=== PATIENT | female | born 1940 ===

== ENCOUNTER 2023-09-24 07:28 | Emergency (ER) | payer MEDICARE, OTHER ==
--- NOTE | 2023-09-24 08:04 | ED ---
Altered Mental Status HPI - General Chief Complaint: Altered Mental Status Stated Complaint: AMS Time Seen by Provider: 09/24/23 07:36 Source: patient, EMS, RN notes reviewed, old records reviewed Mode of arrival: EMS Limitations: altered mental status - History of Present Illness Initial Comments: This is a 83-year-old female to ER for altered mental status. Patient is a poor historian secondary to baseline clinical condition MD Complaint: altered mental status, confusion, decreased responsiveness, weakness -: unknown Consistency of Symptoms: waxing and waning, getting worse Context: history of similar presentation Associated Symptoms: denies other symptoms Treatments Prior to Arrival: other pre-hospital medication - Related Data Home Medications Medication Instructions Recorded Confirmed Acetaminophen Tab [Tylenol] 650 mg PO DAILY 09/30/23 09/30/23 Acetaminophen Tab [Tylenol] 650 mg PO Q4H PRN 09/30/23 09/30/23 Aspirin 81 mg PO DAILY 09/30/23 09/30/23 Atorvastatin [Lipitor] 20 mg PO HS 09/30/23 09/30/23 Famotidine 20 mg PO DAILY 09/30/23 09/30/23 Furosemide [Lasix] 20 mg PO DAILY 09/30/23 09/30/23 Health Shake 1 dose PO W/LUNCH 09/30/23 09/30/23 Ipratropium-Albuterol Nebulize 3 ml INHALATION RT-Q6H PRN 09/30/23 09/30/23 [Duoneb 0.5 mg-3 mg/3 ml Soln] Loperamide [Imodium] 2 mg PO QID PRN 09/30/23 09/30/23 Losartan [Cozaar] 50 mg PO DAILY 09/30/23 09/30/23 Magnesium Oxide [Mag-Ox] 400 mg PO BID 09/30/23 09/30/23 Menthol [Biofreeze] 1 applic TOPICAL Q4H PRN 09/30/23 09/30/23 Nitrofurantoin Monohyd/M-Cryst 100 mg PO Q12HR 09/30/23 09/30/23 [Macrobid] metFORMIN HCL [Glucophage] 500 mg PO BID 09/30/23 09/30/23 Allergies Allergy/AdvReac Type Severity Reaction Status Date / Time No Known Allergies Allergy Verified 09/30/23 18:23 Review of Systems ROS Statement: Those systems with pertinent positive or pertinent negative responses have been documented in the HPI. ROS Other: All systems not noted in ROS Statement are negative. General Exam Limitations: altered mental status General appearance: alert, in no apparent distress Head exam: Present: atraumatic, normocephalic, normal inspection Eye exam: Present: normal appearance, PERRL, EOMI. Absent: scleral icterus, conjunctival injection, periorbital swelling ENT exam: Present: normal exam, mucous membranes moist Neck exam: Present: normal inspection. Absent: tenderness, meningismus, lymphadenopathy Respiratory exam: Present: normal lung sounds bilaterally. Absent: respiratory distress, wheezes, rales, rhonchi, stridor Cardiovascular Exam: Present: regular rate, normal rhythm, normal heart sounds. Absent: systolic murmur, diastolic murmur, rubs, gallop, clicks GI/Abdominal exam: Present: soft, normal bowel sounds. Absent: distended, tenderness, guarding, rebound, rigid Extremities exam: Present: normal inspection, full ROM, normal capillary refill. Absent: tenderness, pedal edema, joint swelling, calf tenderness Back exam: Present: normal inspection Neurological exam: Present: alert, oriented X3, CN II-XII intact Psychiatric exam: Present: normal affect, normal mood Skin exam: Present: warm, dry, intact, normal color. Absent: rash Course Vital Signs 09/24/23 09/24/23 09/24/23 07:30 08:44 13:00 Temperature 97.8 F Pulse Rate 104 H 92 87 Respiratory 18 18 18 Rate Blood Pressure 197/106 154/81 169/96 O2 Sat by Pulse 97 98 98 Oximetry - Reevaluation(s) Reevaluation #1: 09/24/23 09:25 Records reviewed Reevaluation #2: 09/24/23 09:25 Patient symptoms unchanged Reevaluation #3: 09/24/23 11:42 patient is informed of results and questions answered Reevaluation #4: Was pt. sent in by a medical professional or institution (, PA, MACHINE [employer]AT [employer]ER, urgent care, hospital, or senior care...) When possible be specific @ -no Did you speak to anyone other than the patient for history (EMS, parent, family, police, friend...)? What history was obtained from this source @ -no Did you review nursing and triage notes (agree or disagree)? Why? @ -agree Are old charts reviewed (outside hosp., previous admission, EMS record, old EKG, old radiological studies, urgent care reports/EKG's, senior care records)? Report findings @ -yes Differential Diagnosis (chest pain, altered mental status, abdominal pain women, abdominal pain men, vaginal bleeding, weakness, fever, dyspnea, syncope, headache, dizziness, GI bleed, back pain, seizure, CVA, palpatations, mental health, musculoskeletal)? @ -prior EKG interpreted by me (3pts min.). @ -yes X-rays interpreted by me (1pt min.). @ -no CT interpreted by me (1pt min.). @ -no U/S interpreted by me (1pt. min.). @ -no What testing was considered but not performed or refused? (CT, X-rays, U/S, labs)? Why? @ -none What meds were considered but not given or refused? Why? @ -none Did you discuss the management of the patient with other professionals (professionals i.e. , PA, MACHINE [employer]KER, lab, RT, psych nurse, high school social studies tutor, precinct commanding officer, teacher, chief human resources officer, piano case maker)? Give summary @ -no Was smoking cessation discussed for >3mins.? @ -no Were there social determinants of health that impacted care today? How? (Homelessness, low income, unemployed, alcoholism, drug addiction, transportation, low edu. Level, literacy, decrease access to med. care, fdc, rehab)? @ -none Was there de-escalation of care discussed even if they declined (Discuss DNR or withdrawal of care, Hospice)? DNR status @ -no What co-morbidities impacted this encounter? (DM, HTN, Smoking, COPD, CAD, Cancer, CVA, ARF, Chemo, Hep., AIDS, mental health diagnosis, sleep apnea, morbid obesity)? @ -none Was patient admitted / discharged? Hospital course, mention meds given and route, prescriptions, significant lab abnormalities, going to OR and other pertinent info. @ - 83 male to the ER for evaluation today. Patient presents for evaluation of altered mental status with unknown baseline. EMS reports patient does appear to be at her baseline staff and was unsure if patient was at her baseline patient has no acute findings here in the ER and can be discharged Discharge Was critical care preformed (if so, how long)? @ -no Undiagnosed new problem with uncertain prognosis? @ -no Drug Therapy requiring intensive monitoring for toxicity (Heparin, Nitro, Insulin, Cardizem)? @ -no Were any procedures done? @ -no Diagnosis/symptom? @ -Weakness, altered mental status Acute, or Chronic, or Acute on Chronic? @ -Acute Uncomplicated (without systemic symptoms) or Complicated (systemic symptoms)? @ -Complicated Side effects of treatment? @ -no Exacerbation, Progression, or Severe Exacerbation? @ -exacerbation Poses a threat to life or bodily function? How? (Chest pain, [place], [place], pneumonia, PE, COPD, DKA, ARF, appy, cholecystitis, CVA, Diverticulitis, Homicidal, Suicidal, threat to staff... and all critical care pts) @ -yes with extremes of age Reevaluation #5: Differential Altered Mental Status: Hypoglycemia, DKA, hypercapnia, ETOH, overdose, CO poisoning, trauma, myxedema coma, HTN encephalopathy, infection, encephalitis, psychosis, intercranial hemorrhage, hepatic encephalopathy, meningitis, CVA, this is not meant to be an all-inclusive list Medical Decision Making - Medical Decision Making 83 male to the ER for evaluation today. Patient presents for evaluation of altered mental status with unknown baseline. EMS reports patient does appear to be at her baseline staff and was unsure if patient was at her baseline patient has no acute findings here in the ER and can be discharged - Lab Data Result diagrams: 09/24/23 08:22 09/24/23 08:22 Lab Results 09/24/23 09/24/23 09/24/23 Range/Units 08:22 08:22 08:22 WBC 6.6 (3.8-10.6) k/uL RBC 4.52 (3.80-5.40) m/uL Hgb 12.9 (11.4-16.0) gm/dL Hct 40.1 (34.0-46.0) % MCV 88.7 (80.0-100.0) fL MCH 28.5 (25.0-35.0) pg MCHC 32.1 (31.0-37.0) g/dL RDW 15.0 (11.5-15.5) % Plt Count 257 (150-450) k/uL MPV 7.0 Neutrophils % 73 % Lymphocytes % 15 % Monocytes % 7 % Eosinophils % 3 % Basophils % 1 % Neutrophils # 4.8 (1.3-7.7) k/uL Lymphocytes # 1.0 (1.0-4.8) k/uL Monocytes # 0.4 (0-1.0) k/uL Eosinophils # 0.2 (0-0.7) k/uL Basophils # 0.0 (0-0.2) k/uL PT 11.4 (10.0-12.5) sec INR 1.0 (<1.2) APTT 22.3 (22.0-30.0) sec Sodium (137-145) mmol/L Potassium (3.5-5.1) mmol/L Chloride (98-107) mmol/L Carbon Dioxide (22-30) mmol/L Anion Gap mmol/L BUN (7-17) mg/dL Creatinine (0.52-1.04) mg/dL Est GFR (CKD-EPI)AfAm (>60 ml/min/1.73 sqM) Est GFR (CKD-EPI)NonAf (>60 ml/min/1.73 sqM) Glucose (74-99) mg/dL Plasma Lactic Acid Tyler (0.7-2.0) mmol/L Calcium (8.4-10.2) mg/dL Phosphorus (2.5-4.5) mg/dL Magnesium (1.6-2.3) mg/dL Total Bilirubin (0.2-1.3) mg/dL AST (14-36) U/L ALT (4-34) U/L Alkaline Phosphatase (38-126) U/L Troponin I (0.000-0.034) ng/mL NT-Pro-B Natriuret Pep pg/mL Total Protein (6.3-8.2) g/dL Albumin (3.5-5.0) g/dL Urine Color Colorless Urine Appearance Clear (Clear) Urine pH 5.5 (5.0-8.0) Ur Specific [place] 1.013 (1.001-1.035) Urine Protein Trace H (Negative) Urine Glucose (UA) Negative (Negative) Urine Ketones 3+ H (Negative) Urine Blood Negative (Negative) Urine Nitrite Negative (Negative) Urine Bilirubin Negative (Negative) Urine Urobilinogen <2.0 (<2.0) mg/dL Ur Leukocyte Esterase Moderate H (Negative) Urine RBC 9 H (0-5) /hpf Urine WBC 16 H (0-5) /hpf Ur Squamous Epith Cells <1 (0-4) /hpf 09/24/23 09/24/23 09/24/23 Range/Units 08:22 08:22 08:22 WBC (3.8-10.6) k/uL RBC (3.80-5.40) m/uL Hgb (11.4-16.0) gm/dL Hct (34.0-46.0) % MCV (80.0-100.0) fL MCH (25.0-35.0) pg MCHC (31.0-37.0) g/dL RDW (11.5-15.5) % Plt Count (150-450) k/uL MPV Neutrophils % % Lymphocytes % % Monocytes % % Eosinophils % % Basophils % % Neutrophils # (1.3-7.7) k/uL Lymphocytes # (1.0-4.8) k/uL Monocytes # (0-1.0) k/uL Eosinophils # (0-0.7) k/uL Basophils # (0-0.2) k/uL PT (10.0-12.5) sec INR (<1.2) APTT (22.0-30.0) sec Sodium 136 L (137-145) mmol/L Potassium 3.9 (3.5-5.1) mmol/L Chloride 109 H (98-107) mmol/L Carbon Dioxide 15 L (22-30) mmol/L Anion Gap 12 mmol/L BUN 9 (7-17) mg/dL Creatinine 0.45 L (0.52-1.04) mg/dL Est GFR (CKD-EPI)AfAm >90 (>60 ml/min/1.73 sqM) Est GFR (CKD-EPI)NonAf >90 (>60 ml/min/1.73 sqM) Glucose 82 (74-99) mg/dL Plasma Lactic Acid Tyler 1.1 (0.7-2.0) mmol/L Calcium 8.9 (8.4-10.2) mg/dL Phosphorus 2.9 (2.5-4.5) mg/dL Magnesium 1.4 L (1.6-2.3) mg/dL Total Bilirubin 0.9 (0.2-1.3) mg/dL AST 30 (14-36) U/L ALT 11 (4-34) U/L Alkaline Phosphatase 76 (38-126) U/L Troponin I 0.033 (0.000-0.034) ng/mL NT-Pro-B Natriuret Pep 1780 pg/mL Total Protein 5.8 L (6.3-8.2) g/dL Albumin 3.2 L (3.5-5.0) g/dL Urine Color Urine Appearance (Clear) Urine pH (5.0-8.0) Ur Specific [place] (1.001-1.035) Urine Protein (Negative) Urine Glucose (UA) (Negative) Urine Ketones (Negative) Urine Blood (Negative) Urine Nitrite (Negative) Urine Bilirubin (Negative) Urine Urobilinogen (<2.0) mg/dL Ur Leukocyte Esterase (Negative) Urine RBC (0-5) /hpf Urine WBC (0-5) /hpf Ur Squamous Epith Cells (0-4) /hpf - EKG Data -: EKG Interpreted by Me (EKG is sinus 73 NE 109 QRS 138 QTc 443) Disposition Clinical Impression: Altered mental status, Weakness Disposition: HOME SELF-CARE Condition: Fair Instructions (If sedation given, give patient instructions): Altered Mental Status (ED) Is patient prescribed a controlled substance at d/c from ED?: No Referrals: Nhung Guerra DO [Primary Care Provider] - 1-2 days Time of Disposition: 11:45
[2023-09-24 08:30] LABS: Basophils % (A) 1 %; Eosinophils # (A) 0.2 k/uL (0-0.7); Eosinophils % (A) 3 %; HCT 40.1 % (34.0-46.0); HGB 12.9 gm/dL (11.4-16.0); Lymphocytes % (A) 15 %; MCH 28.5 pg (25.0-35.0); MCHC 32.1 g/dL (31.0-37.0); MCV 88.7 fL (80.0-100.0); Monocytes # (A) 0.4 k/uL (0-1.0); Monocytes % (A) 7 %; Neutrophils # (A) 4.8 k/uL (1.3-7.7); Neutrophils % (A) 73 %; Platelet Count 257 k/uL (150-450); RBC 4.52 m/uL (3.80-5.40); WBC 6.6 k/uL (3.8-10.6)
[2023-09-24 08:32] VITALS: RESP 18; TEMP 97.8
[2023-09-24 08:40] LABS: Partial Thromboplastin Time 22.3 sec (22.0-30.0); Prothrombin Time 11.4 sec (10.0-12.5)
[2023-09-24 08:48] LABS: ALT 11 U/L (4-34); African American GFR (CKD) >90 (>60 ml/min/1.73 sqM); Albumin 3.2 g/dL (3.5-5.0); Anion Gap 12 mmol/L; Blood Urea Nitrogen 9 mg/dL (7-17); Calcium 8.9 mg/dL (8.4-10.2); Carbon Dioxide 15 mmol/L (22-30); Chloride 109 mmol/L (98-107); Glucose 82 mg/dL (74-99); Non-African American GFR(CKD) >90 (>60 ml/min/1.73 sqM); Phosphorus 2.9 mg/dL (2.5-4.5); Sodium 136 mmol/L (137-145); Total Bilirubin 0.9 mg/dL (0.2-1.3); Total Protein 5.8 g/dL (6.3-8.2)
[2023-09-24 08:51] LABS: AST 30 U/L (14-36); Alkaline Phosphatase 76 U/L (38-126); Magnesium 1.4 mg/dL (1.6-2.3); Potassium 3.9 mmol/L (3.5-5.1)
[2023-09-24] MEDS: LABETALOL 5 MG/ML VIAL MDV IVP STA (08:52)
[2023-09-24] MEDS: SODIUM CHLORIDE 0.9% 1,000 ML IV STA ×2 (08:53→11:25)
[2023-09-24 08:56] LABS: NT-Pro-B-Type Natriuretic Pept 1780 pg/mL
[2023-09-24 11:13] LABS: Appearance,Urine Clear (Clear); Bilirubin,Urine Negative (Negative); Blood,Urine Negative (Negative); Color,Urine Colorless; Glucose,Urine (UA) Negative (Negative); Ketones,Urine 3+ (Negative); Leukocyte Esterase,Urine Moderate (Negative); Nitrite,Urine Negative (Negative); PH, Urine 5.5 (5.0-8.0); Protein,Urine Trace (Negative); RBC,Urine 9 /hpf (0-5); Specific Gravity,Urine 1.013 (1.001-1.035); Squamous Epithelial Cell,Urine <1 /hpf (0-4); Urobilinogen,Urine <2.0 mg/dL (<2.0); WBC,Urine 16 /hpf (0-5)
[2023-09-24 13:22] VITALS: BP 169/96; PULSE 87
== END 2023-09-24 13:00 | disposition home or self-care (01) ==
LOC: EC 07:28
DX: R41.82 Altered mental status, unspecified (principal); R53.1 Weakness
CPT/HCPCS: 36415; 80053; 81001; 83605; 83735; 83880; 84100; 84484; 85025; 85610; 85730; 93005; 96360; 96361; 99285

== ENCOUNTER 2023-09-30 15:53 | Inpatient (IN) | payer MEDICARE, OTHER ==
[2023-09-30 16:12] LABS: Glucose,Whole Blood 176 mg/dL (70-110)
--- NOTE | 2023-09-30 16:37 | ED ---
General Adult HPI - General Chief complaint: Altered Mental Status Stated complaint: AMS Time Seen by Provider: 09/30/23 16:20 Source: RN/MD, EMS, RN notes reviewed, old records reviewed Mode of arrival: EMS Limitations: altered mental status - History of Present Illness Initial comments: Patient is an 83-year-old female presents emergency department from her halfway, [facility] in [facility] for altered mentation. Was seen here recently for similar complaints. She has a history of heart failure, prior stroke, dementia, diabetes, hypertension, hyperlipidemia, CKD, dysphagia, recurrent UTIs. Patient is unable to find any history. Sent in for evaluation for altered mentation. Per halfway staff, this does seem to have been progressive over the course of weeks. Patient has also had increased weakness. Was transferred here for further evaluation. Patient was seen here for similar complaints and discharged back to her facility after unremarkable workup. Apparently patient has been eating less at her nursing facility.Apparently nursing staff states that a few months ago she had a UTI and at that time prior to being diagnosed was ANO x 3-4 with her chronic dementia but since that time has progressively been going downhill in terms of her mentation. Today it was worse that she is more or less just lying there. She has not been eating or drinking. Still moving everything but not speaking as much. Sent for further evaluation due to this. - Related Data Home Medications Medication Instructions Recorded Confirmed Acetaminophen Tab [Tylenol] 650 mg PO DAILY 09/30/23 09/30/23 Acetaminophen Tab [Tylenol] 650 mg PO Q4H PRN 09/30/23 09/30/23 Aspirin 81 mg PO DAILY 09/30/23 09/30/23 Atorvastatin [Lipitor] 20 mg PO HS 09/30/23 09/30/23 Famotidine 20 mg PO DAILY 09/30/23 09/30/23 Furosemide [Lasix] 20 mg PO DAILY 09/30/23 09/30/23 Health Shake 1 dose PO W/LUNCH 09/30/23 09/30/23 Ipratropium-Albuterol Nebulize 3 ml INHALATION RT-Q6H PRN 09/30/23 09/30/23 [Duoneb 0.5 mg-3 mg/3 ml Soln] Loperamide [Imodium] 2 mg PO QID PRN 09/30/23 09/30/23 Losartan [Cozaar] 50 mg PO DAILY 09/30/23 09/30/23 Magnesium Oxide [Mag-Ox] 400 mg PO BID 09/30/23 09/30/23 Menthol [Biofreeze] 1 applic TOPICAL Q4H PRN 09/30/23 09/30/23 Nitrofurantoin Monohyd/M-Cryst 100 mg PO Q12HR 09/30/23 09/30/23 [Macrobid] metFORMIN HCL [Glucophage] 500 mg PO BID 09/30/23 09/30/23 Allergies Allergy/AdvReac Type Severity Reaction Status Date / Time No Known Allergies Allergy Verified 09/30/23 18:23 Review of Systems ROS Statement: Those systems with pertinent positive or pertinent negative responses have been documented in the HPI. ROS Other: All systems not noted in ROS Statement are negative. Past Medical History Past Medical History: Heart Failure, CVA/TIA, Dementia, Diabetes Mellitus, GERD/Reflux, Hyperlipidemia, Hypertension, Memory Impairment, Osteoarthritis (OA), Renal Disease, Vascular Disorder Additional Past Medical History / Comment(s): Metabolic encephalopathy, CKD Stg 3, DM type 2, PVS, Dysphagia, multiple UTI's, hypomagnesemia, dysuria, tineapedis, vitamin D deficiency, sarcopenia, cannot swallow pills, History of Any Multi-Drug Resistant Organisms: Unobtainable Past Surgical History: Unable to Obtain Past Psychological History: Anxiety, Depression Smoking Status: Unknown if ever smoked Past Alcohol Use History: Unable to Obtain Past Drug Use History: Unable to Obtain General Exam - General Exam Comments Initial Comments: General: Appears in no acute distress. Patient is currently sleeping. HEAD: Normal with no signs of head trauma. EYES: PERRLA, EOMI, conjunctiva normal, no discharge. Pulls are 2 mm and equal bilaterally. ENT: Hearing grossly intact, normal oropharynx. Moist mucous membranes. RESPIRATORY: Clear breath sounds bilaterally. No wheezes, rales, or rhonchi. C/V: Mild tachycardia. Regular rhythm.. S1 and S2 auscultated, mild symmetrical pitting edema of the lower extremities, peripheral pulses 2+ and intact throughout ABD: Abd is soft, nontender, nondistended EXT: Normal range of motion, no obvious deformity SKIN: Bruises over bilateral arms likely from previous IV pokes. Patient does have a stage I sacral decubitus ulcer that appears uncomplicated. NEURO: Alert and oriented x 1 at best. Patient is not speaking much but does oriented to her name. Is moving all 4 extremities. GCS is 12-13. She localizes pain and is just mumbling words that seem confused. Spontaneously moving extremities. With past notes, with ANO x 1 is the patient's baseline. We are going to call and confirm this with the nursing facility. Limitations: altered mental status Course Vital Signs 09/30/23 09/30/23 16:06 21:35 Temperature 98.6 F 97.8 F Pulse Rate 107 H 110 H Respiratory 14 20 Rate Blood Pressure 140/101 132/97 O2 Sat by Pulse 96 98 Oximetry Medical Decision Making - Medical Decision Making Was pt. sent in by a medical professional or institution (, PA, WATER PUMP INSTALLER, urgent care, hospital, or halfway...) When possible be specific @ -Sent from [facility] for evaluation for altered mentation. Did you speak to anyone other than the patient for history (EMS, parent, family, police, friend...)? What history was obtained from this source @ -Spoke with nursing staff who spoke with EMS as well as the nursing facility for all of patient's recent past medical history.Discussed at length with patient's daughter, Kassi who is the guardian and faxed over confirmatory paperwork to endorse this. She would like the patient made DNR after discussion. Otherwise and is in agreement the plan for admission. Also request hospice evaluation. Did you review nursing and triage notes (agree or disagree)? Why? @ -I reviewed and agree with nursing and triage notes Were old charts reviewed (outside hosp., previous admission, EMS record, old EKG, old radiological studies, urgent care reports/EKG's, halfway records)? Report findings @ -Old charts reviewed from recent visit on September 23, 2023 leading review of EKG and laboratory studies. EKG appears within normal limits and unchanged today ever since then and labs at that time showed some mild electrolyte abnormality as well as signs of dehydration on UA. Differential Diagnosis (chest pain, altered mental status, abdominal pain women, abdominal pain men, vaginal bleeding, weakness, fever, dyspnea, syncope, headache, dizziness, GI bleed, back pain, seizure, CVA, palpatations, mental health, musculoskeletal)? @ -Differential Altered Mental Status: Hypoglycemia, DKA, hypercapnia, ETOH, overdose, CO poisoning, trauma, myxedema coma, HTN encephalopathy, infection, encephalitis, psychosis, intercranial hemorrhage, hepatic encephalopathy, meningitis, CVA, this is not meant to be an all-inclusive list EKG interpreted by me (3pts min.). @ -As above X-rays interpreted by me (1pt min.). @ -Chest x-ray reveals no obvious acute cardiopulmonary process. Small mild pulmonary vascular congestion. CT interpreted by me (1pt min.). @ -CT brain reveals no obvious acute cardiopulmonary process. Degenerative changes present. U/S interpreted by me (1pt. min.). @ -None done What testing was considered but not performed or refused? (CT, X-rays, U/S, labs)? Why? @ -None What meds were considered but not given or refused? Why? @ -None Did you discuss the management of the patient with other professionals (professionals i.e. , PA, WATER PUMP INSTALLER, lab, RT, psych nurse, social science teacher, car rental service attendant, teacher, retail loan officer, case technician)? Give summary @ -Discussed with admitting physician, [facility] Dr. Ramirez who accepted the admission. Was smoking cessation discussed for >3mins.? @ -No Was critical care preformed (if so, how long)? @ -Yes, 40 minutes Were there social determinants of health that impacted care today? How? (Homelessness, low income, unemployed, alcoholism, drug addiction, transportation, low edu. Level, literacy, decrease access to med. care, fci, rehab)? @ -No Was there de-escalation of care discussed even if they declined (Discuss DNR or withdrawal of care, Hospice)? DNR status @ - Yes. Spoke with patient's daughter Kassi who confirmed she is guardian after faxing over paperwork patient will be made DNR at her request after discussion as well as hospice consult. What co-morbidities impacted this encounter? (DM, HTN, Smoking, COPD, CAD, Can cer, CVA, ARF, Chemo, Hep., AIDS, mental health diagnosis, sleep apnea, morbid obesity)? @ -Dementia, CHF Was patient admitted / discharged? Hospital course, mention meds given and route, prescriptions, significant lab abnormalities, going to OR and other pertinent info. @ -Based on patient's presentation physical exam, presents emergency department for altered mental status. Will obtain altered mental status workup as well as CT brain and chest x-ray. Vital signs are remarkable for mild tachycardia at 107 bpm. Remainder the vital signs within acceptable limits. Patient will be given a small fluid bolus due to the tachycardia. EKG shows chronic left bundle branch block with no obvious acute changes. ST segment elevation only for boxes in lead V2 does not meet Sgarbossa's criteria f or STEMI. Nonspecific ST segment and T wave abnormalities. Imaging remarkable for possible mild pulmonary vascular congestion. Laboratory studies remarkable for minimal leukocytosis of 10.9, troponin of 2.4, as well as an elevated BNP of 43,000. Urinalysis returned later and is remarkable for concern for UTI. Patient started on antibiotics. Patient started on heparin drip for NSTEMI. Repeat EKG read displayed the left bundle branch block morphology however based on Sgarbossa's criteria does not meet criteria for STEMI activation. Patient just has isolated for box elevation in lead V2. Mental status unchanged. Will continue with IV Rocephin as well as fluids. Patient is placed on low-dose Lasix due to elevated BNP as well as lower extremity pitting edema. Concern for possible CHF as well. Echo ordered. Cardiology will be consulted. I spoke with the admitting physician, [facility] Dr. Ramirez who accepted the admission. Spoke with patient's daughter Kassi who confirmed she is guardian after faxing over paperwork patient will be made DNR at her request after discussion as well as hospice consult. Undiagnosed new problem with uncertain prognosis? @ -No Drug Therapy requiring intensive monitoring for toxicity (Heparin, Nitro, Insulin, Cardizem)? @ -Heparin Were any procedures done? @ -No Diagnosis/symptom? @ -NSTEMI, altered mental status, UTI, dementia, CHF, chronic left bundle branch block Acute, or Chronic, or Acute on Chronic? @ -Acute Uncomplicated (without systemic symptoms) or Complicated (systemic symptoms)? @ -Complicated Side effects of treatment? @ -None Exacerbation, Progression, or Severe Exacerbation] @ -No Poses a threat to life or bodily function? @ -Yes - Lab Data Result diagrams: 09/30/23 16:43 09/30/23 16:43 Lab Results 09/30/23 09/30/23 09/30/23 Range/Units 16:10 16:43 16:43 WBC 10.9 H (3.8-10.6) k/uL RBC 5.34 (3.80-5.40) m/uL Hgb 15.1 (11.4-16.0) gm/dL Hct 47.8 H (34.0-46.0) % MCV 89.6 (80.0-100.0) fL MCH 28.3 (25.0-35.0) pg MCHC 31.6 (31.0-37.0) g/dL RDW 15.7 H (11.5-15.5) % Plt Count 404 (150-450) k/uL MPV 7.5 Neutrophils % 86 % Lymphocytes % 7 % Monocytes % 5 % Eosinophils % 1 % Basophils % 0 % Neutrophils # 9.4 H (1.3-7.7) k/uL Lymphocytes # 0.8 L (1.0-4.8) k/uL Monocytes # 0.5 (0-1.0) k/uL Eosinophils # 0.1 (0-0.7) k/uL Basophils # 0.0 (0-0.2) k/uL PT 12.6 H (10.0-12.5) sec INR 1.2 H (<1.2) APTT 20.5 L (22.0-30.0) sec Sodium (137-145) mmol/L Potassium (3.5-5.1) mmol/L Chloride (98-107) mmol/L Carbon Dioxide (22-30) mmol/L Anion Gap mmol/L BUN (7-17) mg/dL Creatinine (0.52-1.04) mg/dL Est GFR (CKD-EPI)AfAm (>60 ml/min/1.73 sqM) Est GFR (CKD-EPI)NonAf (>60 ml/min/1.73 sqM) Glucose (74-99) mg/dL POC Glucose (mg/dL) 176 H (70-110) mg/dL POC Glu Finishing Machine Operator Automatic ID Camila Roberto Plasma Lactic Acid Tyler (0.7-2.0) mmol/L Calcium (8.4-10.2) mg/dL Total Bilirubin (0.2-1.3) mg/dL AST (14-36) U/L ALT (4-34) U/L Alkaline Phosphatase (38-126) U/L Ammonia (<30) umol/L Troponin I (0.000-0.034) ng/mL NT-Pro-B Natriuret Pep pg/mL Total Protein (6.3-8.2) g/dL Albumin (3.5-5.0) g/dL Serum Alcohol mg/dL Influenza Type A (PCR) (Not Detectd) Influenza Type B (PCR) (Not Detectd) RSV (PCR) (Not Detectd) SARS-CoV-2 (PCR) (Not Detectd) 09/30/23 09/30/23 09/30/23 Range/Units 16:43 16:43 16:43 WBC (3.8-10.6) k/uL RBC (3.80-5.40) m/uL Hgb (11.4-16.0) gm/dL Hct (34.0-46.0) % MCV (80.0-100.0) fL MCH (25.0-35.0) pg MCHC (31.0-37.0) g/dL RDW (11.5-15.5) % Plt Count (150-450) k/uL MPV Neutrophils % % Lymphocytes % % Monocytes % % Eosinophils % % Basophils % % Neutrophils # (1.3-7.7) k/uL Lymphocytes # (1.0-4.8) k/uL Monocytes # (0-1.0) k/uL Eosinophils # (0-0.7) k/uL Basophils # (0-0.2) k/uL PT (10.0-12.5) sec INR (<1.2) APTT (22.0-30.0) sec Sodium 140 (137-145) mmol/L Potassium 4.6 (3.5-5.1) mmol/L Chloride 104 (98-107) mmol/L Carbon Dioxide 25 (22-30) mmol/L Anion Gap 11 mmol/L BUN 22 H (7-17) mg/dL Creatinine 0.56 (0.52-1.04) mg/dL Est GFR (CKD-EPI)AfAm >90 (>60 ml/min/1.73 sqM) Est GFR (CKD-EPI)NonAf 85 (>60 ml/min/1.73 sqM) Glucose 193 H (74-99) mg/dL POC Glucose (mg/dL) (70-110) mg/dL POC Glu Finishing Machine Operator Automatic ID Plasma Lactic Acid Tyler 1.7 (0.7-2.0) mmol/L Calcium 9.7 (8.4-10.2) mg/dL Total Bilirubin 1.3 (0.2-1.3) mg/dL AST 57 H (14-36) U/L ALT 17 (4-34) U/L Alkaline Phosphatase 99 (38-126) U/L Ammonia <9 (<30) umol/L Troponin I 2.400 H* (0.000-0.034) ng/mL NT-Pro-B Natriuret Pep 02489 pg/mL Total Protein 7.5 (6.3-8.2) g/dL Albumin 4.5 (3.5-5.0) g/dL Serum Alcohol <10 mg/dL Influenza Type A (PCR) (Not Detectd) Influenza Type B (PCR) (Not Detectd) RSV (PCR) (Not Detectd) SARS-CoV-2 (PCR) (Not Detectd) 09/30/23 Range/Units 16:46 WBC (3.8-10.6) k/uL RBC (3.80-5.40) m/uL Hgb (11.4-16.0) gm/dL Hct (34.0-46.0) % MCV (80.0-100.0) fL MCH (25.0-35.0) pg MCHC (31.0-37.0) g/dL RDW (11.5-15.5) % Plt Count (150-450) k/uL MPV Neutrophils % % Lymphocytes % % Monocytes % % Eosinophils % % Basophils % % Neutrophils # (1.3-7.7) k/uL Lymphocytes # (1.0-4.8) k/uL Monocytes # (0-1.0) k/uL Eosinophils # (0-0.7) k/uL Basophils # (0-0.2) k/uL PT (10.0-12.5) sec INR (<1.2) APTT (22.0-30.0) sec Sodium (137-145) mmol/L Potassium (3.5-5.1) mmol/L Chloride (98-107) mmol/L Carbon Dioxide (22-30) mmol/L Anion Gap mmol/L BUN (7-17) mg/dL Creatinine (0.52-1.04) mg/dL Est GFR (CKD-EPI)AfAm (>60 ml/min/1.73 sqM) Est GFR (CKD-EPI)NonAf (>60 ml/min/1.73 sqM) Glucose (74-99) mg/dL POC Glucose (mg/dL) (70-110) mg/dL POC Glu Finishing Machine Operator Automatic ID Plasma Lactic Acid Tyler (0.7-2.0) mmol/L Calcium (8.4-10.2) mg/dL Total Bilirubin (0.2-1.3) mg/dL AST (14-36) U/L ALT (4-34) U/L Alkaline Phosphatase (38-126) U/L Ammonia (<30) umol/L Troponin I (0.000-0.034) ng/mL NT-Pro-B Natriuret Pep pg/mL Total Protein (6.3-8.2) g/dL Albumin (3.5-5.0) g/dL Serum Alcohol mg/dL Influenza Type A (PCR) Not Detected (Not Detectd) Influenza Type B (PCR) Not Detected (Not Detectd) RSV (PCR) Not Detected (Not Detectd) SARS-CoV-2 (PCR) Not Detected (Not Detectd) - EKG Data -: EKG Interpreted by Me EKG Comments: 12-lead Electrocardiogram Interpretation Note EKG was reviewed and interpreted by myself. 12-lead ECG performed at 1608 is interpreted by me as revealing sinus tachycardia with chronic left bundle branch block. At a rate of 109 beats per minute. Left axis deviation. IN Intervals 105 ms, QRS durations 142 ms, QTc is [address] segment T wave abnormalities. [address] segment elevation in V2 which is isolated and does not meet Sgarbossa's criteria. R wave progression across the precordium was delayed. This EKG appears similar to EKG from September 24, 2023. 12-lead Electrocardiogram Interpretation Note EKG was reviewed and interpreted by myself. 12-lead ECG performed at 1755 is interpreted by me as revealing sinus tachycardia with left bundle branch block at a rate of 107 beats per minute. Left axis deviation. Parable is 138 ms, QRS durations 146 ms, QTc is 432 ms.. . R wave progression across the precordium was delayed. By my interpretation this EKG is non-diagnostic for acute ischemia. Repeat EKG reveals continued left bundle branch block with no evidence based on Sgarbossa's criteria of acute WA. Patient has an isolated 4 box elevation in lead V2 but no other significant ST elevations, and neither of these meet criteria for acute WA. Critical Care Time Critical Care Time: Yes Total Critical Care Time: 40 Disposition Clinical Impression: NSTEMI (non-ST elevated myocardial infarction), CHF (congestive heart failure), Left bundle branch block, Dementia, Altered mental status, UTI (urinary tract infection) Disposition: ADMITTED IP TO THIS HOSP Condition: Serious Time of Disposition: 18:58
[2023-09-30 17:01] LABS: Basophils % (A) 0 %; Eosinophils # (A) 0.1 k/uL (0-0.7); Eosinophils % (A) 1 %; HCT 47.8 % (34.0-46.0); HGB 15.1 gm/dL (11.4-16.0); Lymphocytes # (A) 0.8 k/uL (1.0-4.8); Lymphocytes % (A) 7 %; MCH 28.3 pg (25.0-35.0); MCHC 31.6 g/dL (31.0-37.0); MCV 89.6 fL (80.0-100.0); Mean Platelet Volume 7.5; Monocytes # (A) 0.5 k/uL (0-1.0); Monocytes % (A) 5 %; Neutrophils # (A) 9.4 k/uL (1.3-7.7); Neutrophils % (A) 86 %; Platelet Count 404 k/uL (150-450); RBC 5.34 m/uL (3.80-5.40); RDW 15.7 % (11.5-15.5); WBC 10.9 k/uL (3.8-10.6)
[2023-09-30 17:16] LABS: Lactic Acid, Venous 1.7 mmol/L (0.7-2.0)
[2023-09-30 17:17] LABS: ALT 17 U/L (4-34); AST 57 U/L (14-36); African American GFR (CKD) >90 (>60 ml/min/1.73 sqM); Albumin 4.5 g/dL (3.5-5.0); Alcohol <10 mg/dL; Alkaline Phosphatase 99 U/L (38-126); Anion Gap 11 mmol/L; Blood Urea Nitrogen 22 mg/dL (7-17); Calcium 9.7 mg/dL (8.4-10.2); Carbon Dioxide 25 mmol/L (22-30); Chloride 104 mmol/L (98-107); Glucose 193 mg/dL (74-99); Non-African American GFR(CKD) 85 (>60 ml/min/1.73 sqM); Sodium 140 mmol/L (137-145); Total Bilirubin 1.3 mg/dL (0.2-1.3); Total Protein 7.5 g/dL (6.3-8.2)
[2023-09-30 17:43] LABS: NT-Pro-B-Type Natriuretic Pept 43300 pg/mL; Potassium 4.6 mmol/L (3.5-5.1)
[2023-09-30] MEDS: SODIUM CHLORIDE 0.9% 1,000 ML IV STA (17:51)
[2023-09-30] MEDS: SODIUM CHLORIDE 0.9% 500 ML 500 ML IV ONE (17:52)
--- NOTE | 2023-09-30 18:19 | CT ---
EXAMINATION TYPE: CT brain wo con CT DLP: 2293 mGycm, Automated exposure control for dose reduction was used. DATE OF EXAM: 09/30/2023 5:12 PM COMPARISON: None.. CLINICAL INDICATION:Female, 83 years old with history of Altered mental status, ams TECHNIQUE: Brain: Axial CT images of the brain were obtained with coronal and sagittal reformats created and rev iewed. Contrast used: None. Oral contrast used: None. FINDINGS: Study is limited due to repetitive patient motion and the aircraft avionics technician made multiple scan attempts due to motion. Extra-axial spaces: No abnormal extra-axial fluid collections. Basilar cisterns are patent. Ventricular system: Ventricles appear dilated in proportion to the degree of cerebral atrophy. Cerebral parenchyma: No increased attenuation to suggest acute intraparenchymal hemorrhage. Smudgy mi neralization of the bilateral basal ganglia. The eastman-white matter interface appears grossly maintain ed. Moderate to severe generalized brain atrophy. Scattered hypoattenuating areas are seen within t he cerebral white matter, nonspecific but most often seen with chronic microvascular ischemic changes ; moderate/severe in degree. Cerebellum: No acute abnormality. Mass effect: No evidence of mass effect or midline shift. Intracranial vasculature: Atherosclerotic calcifications of the larger arteries near the skull base. Soft tissues: No acute or concerning abnormality. Visualized orbits: Orbital contents appear grossly intact. There has likely been previous lens surg boris. Calvarium/osseous structures: No evidence of calvarial fracture. Paranasal sinuses and mastoid air cells: Clear. MRI is more sensitive for detecting acute processes such as infarct, and may be considered if clinica lly warranted. IMPRESSION: 1. Limited study shows no acute intracranial CT abnormality. 2. Moderate to severe atrophy and chronic microvascular ischemic changes.
[2023-09-30 18:22] LABS: INR 1.2 (<1.2); Prothrombin Time 12.6 sec (10.0-12.5)
[2023-09-30] MEDS ORDERED: HEPARIN SODIUM 1,000 UN/ML (10ML VL) IV PRN (18:22)
--- NOTE | 2023-09-30 18:22 | XR ---
EXAMINATION TYPE: XR chest 2V DATE OF EXAM: 09/30/2023 5:19 PM CLINICAL INDICATION:Female, 83 years old with history of altered mental status; COMPARISON: none TECHNIQUE: XR chest 2V Frontal and lateral views of the chest. FINDINGS: Lungs/Pleura: There is no evidence of pleural effusion, focal consolidation, or pneumothorax. Pulmonary vascularity: Unremarkable. Heart/mediastinum: Cardiomediastinal silhouette is unremarkable. Musculoskeletal: No acute osseous pathology. IMPRESSION: No acute cardiopulmonary disease/process.
[2023-09-30 18:24] LABS: Partial Thromboplastin Time 20.5 sec (22.0-30.0)
[2023-09-30] MEDS: ASPIRIN 81 MG PO STA (18:51)
[2023-09-30] MEDS: HEPARIN SODIUM 1,000 UN/ML (10ML VL) IV ONE (18:52)
[2023-09-30] MEDS: HEPARIN SOD,PORK IN 0.45% NACL 25,000 UNIT in 0.45% NACL 1 250ML.BAG IV SCH (18:52)
[2023-09-30] MEDS ORDERED: ONDANSETRON 4 MG/2 ML VIAL IVP PRN (18:58)
[2023-09-30] MEDS ORDERED: ACETAMINOPHEN TAB 325 MG TAB PO PRN (18:58)
[2023-09-30] MEDS ORDERED: NALOXONE 0.4 MG/ML 1 ML VIAL IV PRN (18:58)
[2023-09-30] MEDS: ASPIRIN 300 MG SUPP RECTAL STA (21:25)
[2023-09-30] MEDS: FUROSEMIDE 10 MG/ML 4 ML VIAL IV SCH (21:39)
[2023-09-30 21:43] LABS: Appearance,Urine Cloudy (Clear); Bacteria,Urine Occasional /hpf; Bilirubin,Urine 1+ (Negative); Blood,Urine Moderate (Negative); Color,Urine Yellow; Glucose,Urine (UA) 2+ (Negative); Hyaline Casts,Urine 7 /lpf (0-2); Leukocyte Esterase,Urine Moderate (Negative); Mucus,Urine Occasional /hpf; Nitrite,Urine Negative (Negative); PH, Urine 6.5 (5.0-8.0); Protein,Urine 3+ (Negative); RBC,Urine 10 /hpf (0-5); Specific Gravity,Urine 1.025 (1.001-1.035); Squamous Epithelial Cell,Urine 20 /hpf (0-4); Urobilinogen,Urine <2.0 mg/dL (<2.0); WBC,Urine 122 /hpf (0-5)
[2023-09-30 21:58] LABS: Ketones,Urine 3+ (Negative)
[2023-09-30 21:59] LABS: Amphetamine Screen,Urine Not Detected (NotDetected); Barbiturate Screen,Urine Not Detected (NotDetected); Benzodiazepines Screen,Urine Not Detected (NotDetected); Cocaine Screen,Urine Not Detected (NotDetected); Methadone Screen, Urine Not Detected (NotDetected); Opiate Screen,Urine Not Detected (NotDetected); Oxycodone Screen, Urine Not Detected (NotDetected); Phencyclidine Screen,Urine Not Detected (NotDetected); Tricyclic Antidepressant,Urine Not Detected (NotDetected); Urn Cannabinoid Scrn Not Detected (NotDetected)
[2023-09-30] MEDS ORDERED: IPRATROPIUM-ALBUTEROL 3 ML NEB INHALATION PRN (22:20)
[2023-10-01 05:20] LABS: Glucose,Whole Blood 183 mg/dL (70-110)
[2023-10-01] MEDS: metFORMIN 500 MG TAB PO SCH (07:40)
[2023-10-01 08:48] LABS: Basophils % (A) 0 %; Eosinophils # (A) 0.1 k/uL (0-0.7); Eosinophils % (A) 1 %; HCT 48.1 % (34.0-46.0); HGB 14.8 gm/dL (11.4-16.0); Hypochromasia Slight; Lymphocytes # (A) 0.9 k/uL (1.0-4.8); Lymphocytes % (A) 7 %; MCH 28.3 pg (25.0-35.0); MCHC 30.8 g/dL (31.0-37.0); Mean Platelet Volume 7.5; Monocytes # (A) 0.7 k/uL (0-1.0); Monocytes % (A) 5 %; Neutrophils # (A) 11.1 k/uL (1.3-7.7); Neutrophils % (A) 86 %; Platelet Count 339 k/uL (150-450); RBC 5.23 m/uL (3.80-5.40); RDW 15.6 % (11.5-15.5); WBC 12.9 k/uL (3.8-10.6)
[2023-10-01 09:00] LABS: African American GFR (CKD) >90 (>60 ml/min/1.73 sqM); Anion Gap 11 mmol/L; Blood Urea Nitrogen 27 mg/dL (7-17); Calcium 9.4 mg/dL (8.4-10.2); Carbon Dioxide 22 mmol/L (22-30); Chloride 108 mmol/L (98-107); Glucose 199 mg/dL (74-99); INR 1.3 (<1.2); Non-African American GFR(CKD) 88 (>60 ml/min/1.73 sqM); Sodium 141 mmol/L (137-145)
[2023-10-01 09:03] LABS: Potassium 3.2 mmol/L (3.5-5.1)
[2023-10-01] MEDS: FAMOTIDINE 20 MG TAB PO SCH (10:22)
[2023-10-01] MEDS: ASPIRIN 81 MG PO SCH (10:22)
[2023-10-01] MEDS: LOSARTAN 50 MG TAB PO SCH (10:22)
--- NOTE | 2023-10-01 11:13 | P.CRDCN ---
History of Present Illness History of present illness: HISTORY OF PRESENT ILLNESS: This is a 83-year-old female with a past medical history significant for dementia, congestive heart failure, CVA, diabetes, hypertension, hyperlipidemia, and recurrent UTIs. 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 We have been asked to see the patient in consultation for elevated troponins. Patient examined at the bedside in the emergency room. Patient was brought to the hospital from her her ECF for altered mental status. The patient is lethargic at the time of examination unable to provide any meaningful history. There is no family present at the time of examination. Patient appears to be resting comfortably in bed. The patient was found to have elevated troponins and was started on IV heparin. According to the patient's nurse, the patient has been declining and there is a consultation in place for possible hospice. The patient is currently a DNR. DIAGNOSTICS: - EKG reveals sinus mechanism with left bundle branch block. - Chest xray negative for acute process. - Laboratory data: WBC 12.9. Hemoglobin 14.8. Platelet count 339. Sodium 141. Potassium 3.2. BUN 27. Creatinine 0.51. Troponin 2.400. 2.010. 1.820. - Current home cardiac medications include aspirin 81 mg daily, Lipitor 20 mg at night, Lasix 20 mg daily, losartan 50 mg daily. REVIEW OF SYSTEMS: At the time of my exam: Unable to obtain thorough review of systems secondary to altered mental status PHYSICAL EXAM: VITAL SIGNS: Reviewed. GENERAL: Well-developed in no acute distress. HEENT: Head is normocephalic. Pupils are equal, round. Sclerae anicteric. Mucous membranes of the mouth are moist. Neck supple. No JVD or thyromegaly LUNGS: Respirations even and unlabored. Poor inspiratory effort, however lungs appear clear at this time. HEART: Regular rate and rhythm. S1 and S2 heard. ABDOMEN: Soft. Nondistended. Nontender. EXTREMITIES: Normal range of motion. No clubbing or cyanosis. Peripheral pulses intact. 1+ bilateral lower extremity edema NEUROLOGIC: Awake and alert. Oriented x 3. ASSESSMENT: Altered mental status Non-STEMI Urinary tract infection Acute on chronic heart failure, type unknown, echo pending History of CVA Hypertension Hyperlipidemia Diabetes History of recurrent UTI PLAN: Obtain 2D echo to assess cardiac structure and function Continue IV heparin Continue IV Lasix 40 mg every 12 hours Daily weights, accurate intake and output, and monitoring of kidney function Discontinue IV fluids Increase atorvastatin to 40 mg at night Add metoprolol 25 mg twice a day Continue telemetry monitoring We will continue with conservative management at this time. No plans for cardiac catheterization. Hospice consult has been placed. Await evaluation. Further recommendations pending patient course Nurse practitioner note has been reviewed by physician. Signing provider agrees with the documented findings, assessment, and plan of care documented by PROJECT ENG as a scribe. Past Medical History Past Medical History: Heart Failure, CVA/TIA, Dementia, Diabetes Mellitus, GERD/Reflux, Hyperlipidemia, Hypertension, Memory Impairment, Osteoarthritis (OA), Renal Disease, Vascular Disorder Additional Past Medical History / Comment(s): Metabolic encephalopathy, CKD Stg 3, DM type 2, PVS, Dysphagia, multiple UTI's, hypomagnesemia, dysuria, tineapedis, vitamin D deficiency, sarcopenia, cannot swallow pills, History of Any Multi-Drug Resistant Organisms: Unobtainable Past Surgical History: Unable to Obtain Past Psychological History: Anxiety, Depression Smoking Status: Unknown if ever smoked Past Alcohol Use History: Unable to Obtain Past Drug Use History: Unable to Obtain Medications and Allergies Home Medications Medication Instructions Recorded Confirmed Type Acetaminophen Tab [Tylenol] 650 mg PO DAILY 09/30/23 09/30/23 History Acetaminophen Tab [Tylenol] 650 mg PO Q4H PRN 09/30/23 09/30/23 History Aspirin 81 mg PO DAILY 09/30/23 09/30/23 History Atorvastatin [Lipitor] 20 mg PO HS 09/30/23 09/30/23 History Famotidine 20 mg PO DAILY 09/30/23 09/30/23 History Furosemide [Lasix] 20 mg PO DAILY 09/30/23 09/30/23 History Health Shake 1 dose PO W/LUNCH 09/30/23 09/30/23 History Ipratropium-Albuterol Nebulize 3 ml INHALATION RT-Q6H PRN 09/30/23 09/30/23 History [Duoneb 0.5 mg-3 mg/3 ml Soln] Loperamide [Imodium] 2 mg PO QID PRN 09/30/23 09/30/23 History Losartan [Cozaar] 50 mg PO DAILY 09/30/23 09/30/23 History Magnesium Oxide [Mag-Ox] 400 mg PO BID 09/30/23 09/30/23 History Menthol [Biofreeze] 1 applic TOPICAL Q4H PRN 09/30/23 09/30/23 History Nitrofurantoin Monohyd/M-Cryst 100 mg PO Q12HR 09/30/23 09/30/23 History [Macrobid] metFORMIN HCL [Glucophage] 500 mg PO BID 09/30/23 09/30/23 History Allergies Allergy/AdvReac Type Severity Reaction Status Date / Time No Known Allergies Allergy Verified 09/30/23 18:23 Physical Exam Vitals: Vital Signs Temp Pulse Resp BP BP Pulse Ox 10/01/23 08:45 98 10/01/23 07:39 97.6 F 18 141/100 96 10/01/23 05:12 97.8 F 105 H 18 134/86 98 10/01/23 04:30 107 H 18 136/92 97 10/01/23 02:30 109 H 18 125/95 97 10/01/23 01:30 105 H 20 127/83 95 10/01/23 00:00 105 H 19 145/84 95 09/30/23 22:30 105 H 20 137/81 95 09/30/23 22:00 106 H 20 132/97 97 09/30/23 21:35 97.8 F 110 H 20 132/97 98 09/30/23 21:00 108 H 19 128/79 96 09/30/23 20:00 103 H 18 151/94 97 09/30/23 19:30 108 H 16 144/96 98 09/30/23 16:06 98.6 F 107 H 14 140/101 96 Intake and Output 09/30/23 10/01/23 10/01/23 22:59 06:59 14:59 Intake Total 58.667 Balance 58.667 Intake: Intake, IV Titration 58.667 Amount Heparin Sod,Pork in 0.45% 58.667 NaCl 25,000 unit In 0.45 % NaCl 1 250ml.bag @ 11. 023 UNITS/KG/HR 10 mls/hr IV .Q24H [facility] Rx#: [id number] Other: Voiding Method External Catheter Weight 90.718 kg Results 10/01/23 08:36 10/01/23 08:36 Cardiac Enzymes 09/30/23 09/30/23 09/30/23 Range/Units 16:43 16:43 20:48 AST 57 H (14-36) U/L Troponin I 2.400 H* 2.010 H* (0.000-0.034) ng/mL 10/01/23 Range/Units 00:10 AST (14-36) U/L Troponin I 1.820 H* (0.000-0.034) ng/mL Coagulation 09/30/23 10/01/23 10/01/23 Range/Units 16:43 00:10 08:36 PT 12.6 H 14.0 H (10.0-12.5) sec APTT 20.5 L >200.0 H* (22.0-30.0) sec 10/01/23 Range/Units 08:36 PT (10.0-12.5) sec APTT 50.4 H (22.0-30.0) sec CBC 09/30/23 10/01/23 Range/Units 16:43 08:36 WBC 10.9 H 12.9 H (3.8-10.6) k/uL RBC 5.34 5.23 (3.80-5.40) m/uL Hgb 15.1 14.8 (11.4-16.0) gm/dL Hct 47.8 H 48.1 H (34.0-46.0) % Plt Count 404 339 (150-450) k/uL Comprehensive Metabolic Panel 09/30/23 10/01/23 Range/Units 16:43 08:36 Sodium 140 141 (137-145) mmol/L Potassium 4.6 3.2 L (3.5-5.1) mmol/L Chloride 104 108 H (98-107) mmol/L Carbon Dioxide 25 22 (22-30) mmol/L BUN 22 H 27 H (7-17) mg/dL Creatinine 0.56 0.51 L (0.52-1.04) mg/dL Glucose 193 H 199 H (74-99) mg/dL Calcium 9.7 9.4 (8.4-10.2) mg/dL AST 57 H (14-36) U/L ALT 17 (4-34) U/L Alkaline Phosphatase 99 (38-126) U/L Total Protein 7.5 (6.3-8.2) g/dL Albumin 4.5 (3.5-5.0) g/dL Current Medications Generic Name Dose Route Start Last Admin Trade Name Freq PRN Reason Stop Dose Admin Acetaminophen 650 mg 09/30/23 18:58 Acetaminophen Tab 325 Mg Tab PO Q6HR PRN Mild Pain or Fever > 100.5 Albuterol/Ipratropium 3 ml 09/30/23 22:20 Ipratropium-Albuterol 3 Ml Neb INHALATION RT-Q6H PRN Shortness Of Breath Or Wheezing Aspirin 81 mg 10/01/23 09:00 10/01/23 10:22 Aspirin 81 Mg PO Not Given DAILY HEIDY Atorvastatin Calcium 40 mg 10/01/23 21:00 Atorvastatin 40 Mg Tab PO HS HEIDY Famotidine 20 mg 10/01/23 09:00 10/01/23 10:22 Famotidine 20 Mg Tab PO Not Given DAILY HEIDY Furosemide 40 mg 09/30/23 21:00 10/01/23 10:26 Furosemide 10 Mg/Ml 4 Ml Vial IV 40 mg Q12HR HEIDY Administration Heparin Sodium (Porcine) 0 unit 09/30/23 18:22 Heparin Sodium 1,000 Un/Ml (10ml Vl) IV PER PROTOCOL PRN Low PTT Protocol Heparin Sodium/Sodium Chloride 250 mls @ 10 mls/hr 09/30/23 18:30 10/01/23 02:53 25,000 unit/ Sodium Chloride IV 7.023 units/kg/hr .Q24H HEIDY 6.371 mls/hr Titration Protocol 11.023 UNITS/KG/HR Ceftriaxone Sodium 1 gm/ 50 mls @ 100 mls/hr 09/30/23 22:15 10/01/23 10:26 Sodium Chloride IVPB 100 mls/hr Q24HR HEIDY Administration Protocol Potassium Chloride 10 meq/ IV 100 mls @ 100 mls/hr 10/01/23 10:45 Solution IVPB 10/01/23 12:44 Q1H HEIDY Losartan Potassium 50 mg 10/01/23 09:00 10/01/23 10:22 Losartan 50 Mg Tab PO Not Given DAILY HEIDY Metformin HCl 500 mg 10/01/23 07:30 10/01/23 07:40 Metformin 500 Mg Tab PO Not Given BID-W/MEALS HEIDY Naloxone HCl 0.2 mg 09/30/23 18:58 Naloxone 0.4 Mg/Ml 1 Ml Vial IV Q2M PRN Opioid Reversal Ondansetron HCl 4 mg 09/30/23 18:58 Ondansetron 4 Mg/2 Ml Vial IVP Q8HR PRN Nausea And Vomiting Intake and Output 09/30/23 10/01/23 10/01/23 22:59 06:59 14:59 Intake Total 58.667 Balance 58.667 Intake: Intake, IV Titration 58.667 Amount Heparin Sod,Pork in 0.45% 58.667 NaCl 25,000 unit In 0.45 % NaCl 1 250ml.bag @ 11. 023 UNITS/KG/HR 10 mls/hr IV .Q24H [facility] Rx#: [id number] Other: Voiding Method External Catheter Weight 90.718 kg 10/01/23 08:36 10/01/23 08:36
[2023-10-01] MEDS: POTASSIUM CHLORIDE 10 MEQ in WATER FOR INJECTION 1 100ML.BAG IVPB SCH ×2 (11:44→20:09)
[2023-10-01] MEDS: METOPROLOL TARTRATE 25 MG TAB PO SCH (11:49)
--- NOTE | 2023-10-01 11:56 | P.HPIM ---
History of Present Illness Patient is a 83-year-old female was transferred here for possibility of urinary tract infection. I am unable to get any kind of history from the patient although upon palpation of the abdomen patient has some mid abdominal tenderness patient does have worsening of her mental status as per the ECF staff. She is oriented x 3 as per the nursing documentation. Patient is nonverbal I am unable to get any kind of the history from the patient patient is alert and follows the commands. Patient has abnormal very urine with the squamous epithelial cells no fever does have leukocytosis which is not clearly explained the patient also is found to have elevated troponin of 1.820 and patient was started on IV heparin, this troponin is followed by 2 other troponins of 2.010 and 2.4 because of which cardiology evaluate the patient patient was started on IV heparin. Patient baseline has dementia and patient has a guardian. Review of systems: Unable to obtain due to her clinical condition - PHYSICAL EXAMINATION: GENERAL: The patient is alert and unable to assess orientation, not in any acute distress. Well developed, well nourished. HEENT: Pupils are round and equally reacting to light. EOMI. No scleral icterus. No conjunctival pallor. Normocephalic, atraumatic. No pharyngeal erythema. No thyromegaly. CARDIOVASCULAR: S1 and S2 present. No murmurs, rubs, or gallops. PULMONARY: Chest is clear to auscultation, no wheezing or crackles. ABDOMEN: Soft, mid abdominal tenderness, nondistended, normoactive bowel sounds. No palpable organomegaly. MUSCULOSKELETAL: No joint swelling or deformity. EXTREMITIES: No cyanosis, clubbing, or pedal edema. NEUROLOGICAL: Unable to assess SKIN: No rashes. Assessment and plan Altered mental status toxic encephalopathy, I cannot rule out urinary tract infection patient will be continued on Rocephin, did not have any previous urine cultures available at this time. -Possible nonacute ST elevation myocardial infarction continue with IV heparin cardiology evaluated patient not planning on any intervention at this time considering her age and advanced dementia hospice was consulted by cardiology -Congestive heart failure ejection fraction is not known patient has elevated BNP and chest x-ray showing pulmonary edema, IV fluids were discontinued and patient was started on IV Lasix -Hypertension -Hypokalemia potassium will be replaced -Type 2 diabetes mellitus -Advanced dementia probably vascular dementia CT of the head showing chronic microvascular ischemic changes along with moderate to severe atrophy of the brain DVT prophylaxis patient is on IV heparin Past Medical History Past Medical History: Heart Failure, CVA/TIA, Dementia, Diabetes Mellitus, GERD/Reflux, Hyperlipidemia, Hypertension, Memory Impairment, Osteoarthritis (OA), Renal Disease, Vascular Disorder Additional Past Medical History / Comment(s): Metabolic encephalopathy, CKD Stg 3, DM type 2, PVS, Dysphagia, multiple UTI's, hypomagnesemia, dysuria, tineapedis, vitamin D deficiency, sarcopenia, cannot swallow pills, History of Any Multi-Drug Resistant Organisms: Unobtainable Past Surgical History: Unable to Obtain Past Psychological History: Anxiety, Depression Smoking Status: Unknown if ever smoked Past Alcohol Use History: Unable to Obtain Past Drug Use History: Unable to Obtain Medications and Allergies Home Medications Medication Instructions Recorded Confirmed Type Acetaminophen Tab [Tylenol] 650 mg PO DAILY 09/30/23 09/30/23 History Acetaminophen Tab [Tylenol] 650 mg PO Q4H PRN 09/30/23 09/30/23 History Aspirin 81 mg PO DAILY 09/30/23 09/30/23 History Atorvastatin [Lipitor] 20 mg PO HS 09/30/23 09/30/23 History Famotidine 20 mg PO DAILY 09/30/23 09/30/23 History Furosemide [Lasix] 20 mg PO DAILY 09/30/23 09/30/23 History Health Shake 1 dose PO W/LUNCH 09/30/23 09/30/23 History Ipratropium-Albuterol Nebulize 3 ml INHALATION RT-Q6H PRN 09/30/23 09/30/23 History [Duoneb 0.5 mg-3 mg/3 ml Soln] Loperamide [Imodium] 2 mg PO QID PRN 09/30/23 09/30/23 History Losartan [Cozaar] 50 mg PO DAILY 09/30/23 09/30/23 History Magnesium Oxide [Mag-Ox] 400 mg PO BID 09/30/23 09/30/23 History Menthol [Biofreeze] 1 applic TOPICAL Q4H PRN 09/30/23 09/30/23 History Nitrofurantoin Monohyd/M-Cryst 100 mg PO Q12HR 09/30/23 09/30/23 History [Macrobid] metFORMIN HCL [Glucophage] 500 mg PO BID 09/30/23 09/30/23 History Allergies Allergy/AdvReac Type Severity Reaction Status Date / Time No Known Allergies Allergy Verified 09/30/23 18:23 Physical Exam Vitals: Vital Signs Temp Pulse Resp BP BP Pulse Ox 10/01/23 08:45 98 10/01/23 07:39 97.6 F 18 141/100 96 10/01/23 05:12 97.8 F 105 H 18 134/86 98 10/01/23 04:30 107 H 18 136/92 97 10/01/23 02:30 109 H 18 125/95 97 10/01/23 01:30 105 H 20 127/83 95 10/01/23 00:00 105 H 19 145/84 95 09/30/23 22:30 105 H 20 137/81 95 09/30/23 22:00 106 H 20 132/97 97 09/30/23 21:35 97.8 F 110 H 20 132/97 98 09/30/23 21:00 108 H 19 128/79 96 09/30/23 20:00 103 H 18 151/94 97 09/30/23 19:30 108 H 16 144/96 98 09/30/23 16:06 98.6 F 107 H 14 140/101 96 Intake and Output 09/30/23 10/01/23 10/01/23 22:59 06:59 14:59 Intake Total 58.667 Balance 58.667 Intake: Intake, IV Titration 58.667 Amount Heparin Sod,Pork in 0.45% 58.667 NaCl 25,000 unit In 0.45 % NaCl 1 250ml.bag @ 11. 023 UNITS/KG/HR 10 mls/hr IV .Q24H [facility] Rx#: [id number] Other: Voiding Method External Catheter Weight 90.718 kg Results CBC & Chem 7: 10/01/23 08:36 10/01/23 08:36 Labs: Abnormal Lab Results - Last 24 Hours (Table) 09/30/23 09/30/23 09/30/23 Range/Units 16:10 16:43 16:43 WBC 10.9 H (3.8-10.6) k/uL Hct 47.8 H (34.0-46.0) % MCHC (31.0-37.0) g/dL RDW 15.7 H (11.5-15.5) % Neutrophils # 9.4 H (1.3-7.7) k/uL Lymphocytes # 0.8 L (1.0-4.8) k/uL PT 12.6 H (10.0-12.5) sec INR 1.2 H (<1.2) APTT 20.5 L (22.0-30.0) sec Potassium (3.5-5.1) mmol/L Chloride (98-107) mmol/L BUN (7-17) mg/dL Creatinine (0.52-1.04) mg/dL Glucose (74-99) mg/dL POC Glucose (mg/dL) 176 H (70-110) mg/dL AST (14-36) U/L Troponin I (0.000-0.034) ng/mL Urine Appearance (Clear) Urine Protein (Negative) Urine Glucose (UA) (Negative) Urine Ketones (Negative) Urine Blood (Negative) Urine Bilirubin (Negative) Ur Leukocyte Esterase (Negative) Urine RBC (0-5) /hpf Urine WBC (0-5) /hpf Urine WBC Clumps (None) /hpf Ur Squamous Epith Cells (0-4) /hpf Urine Bacteria (None) /hpf Hyaline Casts (0-2) /lpf Urine Mucus (None) /hpf 09/30/23 09/30/23 09/30/23 Range/Units 16:43 16:43 20:48 WBC (3.8-10.6) k/uL Hct (34.0-46.0) % MCHC (31.0-37.0) g/dL RDW (11.5-15.5) % Neutrophils # (1.3-7.7) k/uL Lymphocytes # (1.0-4.8) k/uL PT (10.0-12.5) sec INR (<1.2) APTT (22.0-30.0) sec Potassium (3.5-5.1) mmol/L Chloride (98-107) mmol/L BUN 22 H (7-17) mg/dL Creatinine (0.52-1.04) mg/dL Glucose 193 H (74-99) mg/dL POC Glucose (mg/dL) (70-110) mg/dL AST 57 H (14-36) U/L Troponin I 2.400 H* 2.010 H* (0.000-0.034) ng/mL Urine Appearance (Clear) Urine Protein (Negative) Urine Glucose (UA) (Negative) Urine Ketones (Negative) Urine Blood (Negative) Urine Bilirubin (Negative) Ur Leukocyte Esterase (Negative) Urine RBC (0-5) /hpf Urine WBC (0-5) /hpf Urine WBC Clumps (None) /hpf Ur Squamous Epith Cells (0-4) /hpf Urine Bacteria (None) /hpf Hyaline Casts (0-2) /lpf Urine Mucus (None) /hpf 09/30/23 10/01/23 10/01/23 Range/Units 21:35 00:10 00:10 WBC (3.8-10.6) k/uL Hct (34.0-46.0) % MCHC (31.0-37.0) g/dL RDW (11.5-15.5) % Neutrophils # (1.3-7.7) k/uL Lymphocytes # (1.0-4.8) k/uL PT (10.0-12.5) sec INR (<1.2) APTT >200.0 H* (22.0-30.0) sec Potassium (3.5-5.1) mmol/L Chloride (98-107) mmol/L BUN (7-17) mg/dL Creatinine (0.52-1.04) mg/dL Glucose (74-99) mg/dL POC Glucose (mg/dL) (70-110) mg/dL AST (14-36) U/L Troponin I 1.820 H* (0.000-0.034) ng/mL Urine Appearance Cloudy H (Clear) Urine Protein 3+ H (Negative) Urine Glucose (UA) 2+ H (Negative) Urine Ketones 3+ H (Negative) Urine Blood Moderate H (Negative) Urine Bilirubin 1+ H (Negative) Ur Leukocyte Esterase Moderate H (Negative) Urine RBC 10 H (0-5) /hpf Urine WBC 122 H (0-5) /hpf Urine WBC Clumps Few H (None) /hpf Ur Squamous Epith Cells 20 H (0-4) /hpf Urine Bacteria Occasional H (None) /hpf Hyaline Casts 7 H (0-2) /lpf Urine Mucus Occasional H (None) /hpf 0610/01/23 10/01/23 Range/Units 05:19 08:36 08:36 WBC 12.9 H (3.8-10.6) k/uL Hct 48.1 H (34.0-46.0) % MCHC 30.8 L (31.0-37.0) g/dL RDW 15.6 H (11.5-15.5) % Neutrophils # 11.1 H (1.3-7.7) k/uL Lymphocytes # 0.9 L (1.0-4.8) k/uL PT 14.0 H (10.0-12.5) sec INR 1.3 H (<1.2) APTT (22.0-30.0) sec Potassium (3.5-5.1) mmol/L Chloride (98-107) mmol/L BUN (7-17) mg/dL Creatinine (0.52-1.04) mg/dL Glucose (74-99) mg/dL POC Glucose (mg/dL) 183 H (70-110) mg/dL AST (14-36) U/L Troponin I (0.000-0.034) ng/mL Urine Appearance (Clear) Urine Protein (Negative) Urine Glucose (UA) (Negative) Urine Ketones (Negative) Urine Blood (Negative) Urine Bilirubin (Negative) Ur Leukocyte Esterase (Negative) Urine RBC (0-5) /hpf Urine WBC (0-5) /hpf Urine WBC Clumps (None) /hpf Ur Squamous Epith Cells (0-4) /hpf Urine Bacteria (None) /hpf Hyaline Casts (0-2) /lpf Urine Mucus (None) /hpf 10/01/23 10/01/23 Range/Units 08:36 08:36 WBC (3.8-10.6) k/uL Hct (34.0-46.0) % MCHC (31.0-37.0) g/dL RDW (11.5-15.5) % Neutrophils # (1.3-7.7) k/uL Lymphocytes # (1.0-4.8) k/uL PT (10.0-12.5) sec INR (<1.2) APTT 50.4 H (22.0-30.0) sec Potassium 3.2 L (3.5-5.1) mmol/L Chloride 108 H (98-107) mmol/L BUN 27 H (7-17) mg/dL Creatinine 0.51 L (0.52-1.04) mg/dL Glucose 199 H (74-99) mg/dL POC Glucose (mg/dL) (70-110) mg/dL AST (14-36) U/L Troponin I (0.000-0.034) ng/mL Urine Appearance (Clear) Urine Protein (Negative) Urine Glucose (UA) (Negative) Urine Ketones (Negative) Urine Blood (Negative) Urine Bilirubin (Negative) Ur Leukocyte Esterase (Negative) Urine RBC (0-5) /hpf Urine WBC (0-5) /hpf Urine WBC Clumps (None) /hpf Ur Squamous Epith Cells (0-4) /hpf Urine Bacteria (None) /hpf Hyaline Casts (0-2) /lpf Urine Mucus (None) /hpf
[2023-10-01] MEDS: INSULIN ASPART (NovoLOG) 100 UNIT/ML VIAL SQ SCH (12:58)
[2023-10-01 12:59] LABS: Glucose,Whole Blood 211 mg/dL (70-110)
--- NOTE | 2023-10-01 13:39 | CA ---
Transthoracic Echo Report Name: Lizbet Bledsoe Age: 83 Gender: F : 1940 Exam Date: 10/01/2023 09:14 Exam Location: [facility] Ht (in): 70 Wt (lb): 200 Ordering Physician: Quentin Saucedo MD Attending/Referring Phys: Advertising Associate Jennifer Horne RDCS Procedure CPT: Indications: nstemi Cardiac Hx: Technical Quality: Fair Contrast 1: Total Dose (mL): Contrast 2: Total Dose (mL): MEASUREMENTS (Male / Female) Normal Values 2D ECHO LV Diastolic Diameter PLAX 4.2 cm 4.2 - 5.9 / 3.9 - 5.3 cm LV Systolic Diameter PLAX 3.9 cm IVS Diastolic Thickness 1.4 cm 0.6 - 1.0 / 0.6 - 0.9 cm LVPW Diastolic Thickness 1.4 cm 0.6 - 1.0 / 0.6 - 0.9 cm LV Relative Wall Thickness 0.7 RV Internal Dim ED PLAX 3.0 cm LA Systolic Diameter LX 3.4 cm 3.0 - 4.0 / 2.7 - 3.8 cm LA Volume 29.2 cm??? 18 - 58 / 22 - 52 cm??? LA Volume Index 13.7 cm???/m??? 16 - 28 cm???/m??? M-MODE Aortic Root Diameter MM 2.9 cm DOPPLER AV Peak Velocity 89.6 cm/s AV Peak Gradient 3.2 mmHg MV Area PHT 9.1 cm??? Mitral E Point Velocity 82.4 cm/s Mitral A Point Velocity 64.2 cm/s Mitral E to A Ratio 1.3 MV Deceleration Time 83.7 ms FINDINGS Left Ventricle Left ventricular ejection fraction is estimated at 20-25 %. Left ventricular cavity size normal. Moderate concentric left ventricular hypertrophy. Severely reduced global left ventricular systolic function. [place] akinesis Thrombus in LV [place]. Right Ventricle Normal right ventricular size. Unable to estimate the right ventricular systolic pressure. Right Atrium Right atrium not well visualized. Left Atrium Normal left atrial size. No left atrial thrombus or mass present. Mitral Valve Structurally normal mitral valve. No mitral stenosis, regurgitation or prolapse. Aortic Valve Trileaflet aortic valve. No aortic valve stenosis or regurgitation. Tricuspid Valve Structurally normal tricuspid valve. No tricuspid stenosis, regurgitation or prolapse. Pulmonic Valve Structurally normal pulmonic valve. No pulmonic regurgitation. Pericardium No pericardial or pleural effusion. Aorta Normal size aortic root and proximal ascending aorta. CONCLUSIONS Severe LV dysfunction with only the base of the LV asrahi Septal dyskinesis Large apical akinesis with LV thrombus Previewed by: Dr. Miguel Angel Harvey MD (Electronically Signed) Final Date: 01 October 2023 13:38
[2023-10-01 16:53] LABS: Glucose,Whole Blood 191 mg/dL (70-110)
[2023-10-01] MEDS ORDERED: Potassium Replacement Protocol 1 EACH MISC MISCELLANE PRN (18:58)
[2023-10-01] MEDS: ATORVASTATIN 40 MG TAB PO SCH (20:09)
[2023-10-01] MEDS: MAGNESIUM OXIDE 400 MG TAB PO SCH (20:09)
[2023-10-01] MEDS ORDERED: ATORVASTATIN 20 MG TAB PO SCH (21:00)
[2023-10-02] MEDS ORDERED: ZINC OXIDE PASTE (Z-GUARD) 1 APPLIC TOPICAL PRN (03:54)
[2023-10-02] MEDS: ACETAMINOPHEN TAB 325 MG TAB PO SCH (10:00)
[2023-10-02] MEDS: FUROSEMIDE 40 MG TAB PO SCH (10:00)
[2023-10-02] MEDS: METOPROLOL TARTRATE 50 MG TAB PO SCH (10:00)
[2023-10-02 11:14] LABS: HCT 45.8 % (34.0-46.0); HGB 14.8 gm/dL (11.4-16.0); MCH 28.8 pg (25.0-35.0); MCHC 32.3 g/dL (31.0-37.0); MCV 89.4 fL (80.0-100.0); Mean Platelet Volume 7.9; Platelet Count 414 k/uL (150-450); RBC 5.12 m/uL (3.80-5.40); RDW 15.9 % (11.5-15.5); WBC 16.3 k/uL (3.8-10.6)
[2023-10-02 12:03] LABS: Glucose,Whole Blood 181 mg/dL (70-110)
--- NOTE | 2023-10-02 12:31 | P.PN ---
Subjective Progress Note Date: 10/02/23 HISTORY OF PRESENT ILLNESS: This is a 83-year-old female with a past medical history significant for de mentia, congestive heart failure, CVA, diabetes, hypertension, hyperlipidemia, and recurrent UTIs. 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 We have been asked to see the patient in consultation for elevated troponins. Patient examined at the bedside in the emergency room. Patient was brought to the hospital from her her ECF for altered mental status. The patient is lethargic at the time of examination unable to provide any meaningful history. There is no family present at the time of examination. Patient appears to be resting comfortably in bed. The patient was found to have elevated troponins and was started on IV heparin. According to the patient's nurse, the patient has been declining and there is a consultation in place for possible hospice. The patient is currently a DNR. DIAGNOSTICS: - EKG reveals sinus mechanism with left bundle branch block. - Chest xray negative for acute process. - Laboratory data: WBC 12.9. Hemoglobin 14.8. Platelet count 339. Sodium 141. Potassium 3.2. BUN 27. Creatinine 0.51. Troponin 2.400. 2.010. 1.820. - Current home cardiac medications include aspirin 81 mg daily, Lipitor 20 mg at night, Lasix 20 mg daily, losartan 50 mg daily. 10/01 Patient has been transferred to [facility] floor. Hospice consult is in place today. Blood pressure 145/91, heart rate 90s. Echocardiogram reveals EF of 20 to 25%. Large apical hypokinesis with LV thrombus. Patient has been maintained on heparin drip as well as IV Lasix. PHYSICAL EXAM: VITAL SIGNS: Reviewed. GENERAL: Well-developed in no acute distress. HEENT: Head is normocephalic. Pupils are equal, round. Sclerae anicteric. Mucous membranes of the mouth are moist. Neck supple. No JVD or thyromegaly LUNGS: Respirations even and unlabored. Poor inspiratory effort, however lungs appear clear at this time. HEART: Regular rate and rhythm. S1 and S2 heard. ABDOMEN: Soft. Nondistended. Nontender. EXTREMITIES: Normal range of motion. No clubbing or cyanosis. Peripheral pulses intact. 1+ bilateral lower extremity edema NEUROLOGIC: Awake and alert. Oriented x 3. ASSESSMENT: Altered mental status Non-STEMI Urinary tract infection Acute on chronic heart failure, type unknown, echo pending History of CVA Hypertension Hyperlipidemia Diabetes History of recurrent UTI PLAN: Discontinue IV heparin, no plan for oral anticoagulation due to patient's current condition Transition IV Lasix to oral Continue current cardiac medications We will continue with conservative management at this time. No plans for cardiac catheterization. Hospice consult in place Cardiology will sign off this case and follow on an as-needed basis. Please reconsult for any new concerns. Nurse practitioner note has been reviewed by physician. Signing provider agrees with the documented findings, assessment, and plan of care documented by INTELLIGENCE OPERATIONS SPECIALIST as a scribe. Objective - Vital Signs Vital signs: Vital Signs Temp 97.9 F 10/02/23 01:44 Pulse 91 10/02/23 01:44 Resp 17 10/02/23 01:44 BP 145/91 10/02/23 01:44 Pulse Ox 98 10/02/23 01:44 FiO2 Intake & Output 10/01/23 10/02/23 10/02/23 18:59 06:59 18:59 Intake Total 115.103 Output Total 900 281 Balance -900 -165.897 Weight 90.718 kg Intake: Intake, IV Titration 115.103 Amount Heparin Sod,Pork in 0.45% 115.103 NaCl 25,000 unit In 0.45 % NaCl 1 250ml.bag @ 11. 023 UNITS/KG/HR 10 mls/hr IV .Q24H [facility] Rx#: [id number] Output: Urine 900 150 Post Void Residual 131 Other: Voiding Method External Catheter External Catheter # Voids 1 - Labs CBC & Chem 7: 10/02/23 10:06 10/01/23 17:05 Labs: Abnormal Lab Results - Last 24 Hours (Table) 10/01/23 10/01/23 10/01/23 Range/Units 08:36 08:36 12:58 APTT 50.4 H (22.0-30.0) sec Potassium 3.2 L (3.5-5.1) mmol/L Chloride 108 H (98-107) mmol/L BUN 27 H (7-17) mg/dL Creatinine 0.51 L (0.52-1.04) mg/dL Glucose 199 H (74-99) mg/dL POC Glucose (mg/dL) 211 H (70-110) mg/dL 10/01/23 10/01/23 Range/Units 16:51 17:05 APTT (22.0-30.0) sec Potassium 3.3 L (3.5-5.1) mmol/L Chloride (98-107) mmol/L BUN (7-17) mg/dL Creatinine (0.52-1.04) mg/dL Glucose (74-99) mg/dL POC Glucose (mg/dL) 191 H (70-110) mg/dL Microbiology - Last 24 Hours (Table) 09/30/23 21:35 Urine Culture - Preliminary Urine,Catheterized Group D Enterococcus Gram Neg Bacilli 09/30/23 16:28 Blood Culture - Preliminary Blood 09/30/23 16:43 Blood Culture - Preliminary Blood
[2023-10-02] MEDS: AMPICILLIN-SULBACTAM 3 GM in SODIUM CHLORIDE 0.9% 100 ML IVPB SCH (12:37)
--- NOTE | 2023-10-02 14:17 | P.PN ---
Subjective Progress Note Date: 10/02/23 Patient is a 83-year-old female was transferred here for possibility of urinary tract infection. I am unable to get any kind of history from the patient although upon palpation of the abdomen patient has some mid abdominal tenderness patient does have worsening of her mental status as per the ECF staff. She is oriented x 3 as per the nursing documentation. Patient is nonverbal I am unable to get any kind of the history from the patient patient is alert and follows the commands. Patient has abnormal very urine with the squamous epithelial cells no fever does have leukocytosis which is not clearly explained the patient also is found to have elevated troponin of 1.820 and patient was started on IV heparin, this troponin is followed by 2 other troponins of 2.010 and 2.4 because of which cardiology evaluate the patient patient was started on IV heparin. Patient baseline has dementia and patient has a guardian. 10/02/2023 Patient is eval today in follow-up, she is more awake and alert and answering simple questions. She has a urinary tract infection with cultures showing e.coli and enterococcus because of this her antibiotics have been changed to IV unasyn. White blood cell count today 16.3. Patient echo shows EF of 20-25% with septal dyskinesis with LV thrombus. The IV heparin gtt has been discontinued today with no plans for anticoagulation. Review of systems: Unable to obtain due to her clinical condition PHYSICAL EXAMINATION: GENERAL: The patient is alert and unable to assess orientation, not in any acute distress. Well developed, well nourished. HEENT: Pupils are round and equally reacting to light. EOMI. No scleral icterus. No conjunctival pallor. Normocephalic, atraumatic. No pharyngeal erythema. No thyromegaly. CARDIOVASCULAR: S1 and S2 present. No murmurs, rubs, or gallops. PULMONARY: Chest is clear to auscultation, no wheezing or crackles. ABDOMEN: Soft, mid abdominal tenderness, nondistended, normoactive bowel sounds. No palpable organomegaly. MUSCULOSKELETAL: No joint swelling or deformity. EXTREMITIES: No cyanosis, clubbing, or pedal edema. NEUROLOGICAL: Unable to assess SKIN: No rashes. Assessment and plan Altered mental status toxic encephalopathy, secondary to underlying infection -Urinary tract infection with sepsis with culture showing e.coli and enterococcus on IV unasyn -Non ST elevation [place] -LV thrombus heparin has been stopped and no plans for anticoagulation from cardiology perspective -Congestive heart failure ejection fraction, systolic dysfunction EF 20-25% and patient continues on oral lasix -Hypertension currently normotensive/low and losartan will be held -Hypokalemia potassium will be replaced and now normalized. -Type 2 diabetes mellitus -Advanced dementia probably vascular dementia CT of the head showing chronic microvascular ischemic changes along with moderate to severe atrophy of the brain DVT prophylaxis GI prophylaxis No Code Continue antibiotics pending final urine culture. Hospice has been consulted. No aggressive measures per cardiology. Did discuss findings and plan of care with patients daughter merlyn over the phone and the plan for now is to continue antibiotics. Family is coming in late tomorrow from out of state to discuss hospice etc. Encourage oral intake. Clear liquids only patient did not tolerate other types of consistency during her speech therapy evaluation. If family does not want hospice patient will likely need a PEG tube as her oral intake has been poor for the last few months per family. The impression and plan of care has been dictated by Jackeline Goodrich, Nurse Practitioner as directed. Dr. Ann MD I have performed a history and physical examination and medical decision making of this patient, discussed the same with the dictator, and agree with the dictators assessment and plan as written, documented as a scribe. Based on total visit time, I have performed more than 50% of this visit. Objective - Vital Signs Vital signs: Vital Signs Temp 97.8 F 10/02/23 07:42 Pulse 100 10/02/23 07:42 Resp 17 10/02/23 07:42 BP 138/84 10/02/23 07:42 Pulse Ox 98 10/02/23 07:42 FiO2 Intake & Output 10/01/23 10/02/23 10/02/23 18:59 06:59 18:59 Intake Total 115.103 78.363 Output Total 900 281 0 Balance -900 -165.897 78.363 Weight 90.718 kg Intake: Intake, IV Titration 115.103 78.363 Amount Heparin Sod,Pork in 0.45% 115.103 78.363 NaCl 25,000 unit In 0.45 % NaCl 1 250ml.bag @ 11. 023 UNITS/KG/HR 10 mls/hr IV .Q24H [facility] Rx#: [id number] Output: Urine 900 150 0 Post Void Residual 131 Other: Voiding Method External Catheter External Catheter External Catheter # Voids 1 - Labs CBC & Chem 7: 10/02/23 10:06 10/01/23 17:05 Labs: Abnormal Lab Results - Last 24 Hours (Table) 10/01/23 10/01/23 10/02/23 Range/Units 16:51 17:05 10:06 WBC (3.8-10.6) k/uL RDW (11.5-15.5) % APTT 40.8 H (22.0-30.0) sec Potassium 3.3 L (3.5-5.1) mmol/L POC Glucose (mg/dL) 191 H (70-110) mg/dL 10/02/23 10/02/23 Range/Units 10:06 12:01 WBC 16.3 H (3.8-10.6) k/uL RDW 15.9 H (11.5-15.5) % APTT (22.0-30.0) sec Potassium (3.5-5.1) mmol/L POC Glucose (mg/dL) 181 H (70-110) mg/dL Microbiology - Last 24 Hours (Table) 09/30/23 21:35 Urine Culture - Preliminary Urine,Catheterized Group D Enterococcus Gram Neg Bacilli 09/30/23 16:28 Blood Culture - Preliminary Blood 09/30/23 16:43 Blood Culture - Preliminary Blood Assessment and Plan Time with Patient: Less than 30
[2023-10-02 15:04] LABS: Blood Urea Nitrogen 38.4 mg/dL (9.0-27.0); Carbon Dioxide 23.7 mmol/L (21.6-31.8); Chloride 105 mmol/L (96-109); Glucose 198 mg/dL (70-110); Potassium 3.8 mmol/L (3.5-5.5); Sodium 148 mmol/L (135-145)
[2023-10-02 17:34] LABS: Glucose,Whole Blood 386 mg/dL (70-110)
[2023-10-02] MEDS: SODIUM CHLORIDE 0.9% 1,000 ML IV SCH (18:18)
[2023-10-02 20:47] LABS: Glucose,Whole Blood 216 mg/dL (70-110)
[2023-10-02] MEDS: HEPARIN SODIUM,PORCINE 5,000 UNIT/ML 1 ML VIAL SQ SCH (21:00)
[2023-10-03 07:04] LABS: Glucose,Whole Blood 131 mg/dL (70-110)
[2023-10-03 09:17] LABS: Calcium 9.3 mg/dL (8.7-10.3); Carbon Dioxide 26.5 mmol/L (21.6-31.8); Chloride 109 mmol/L (96-109); Glucose 142 mg/dL (70-110); Potassium 2.8 mmol/L (3.5-5.5); Sodium 149 mmol/L (135-145)
[2023-10-03] MEDS: DEXTROSE 5% IN WATER 1,000 ML IV ONE (09:58)
[2023-10-03] MEDS: POTASSIUM CHLORIDE 20 MEQ in WATER FOR INJECTION 1 100ML.BAG IVPB SCH (09:58)
[2023-10-03 12:00] LABS: Glucose,Whole Blood 266 mg/dL (70-110)
[2023-10-03] MEDS ORDERED: VANCOMYCIN IV PER PHARMACY 1 EACH MISC MISCELLANE PRN (13:46)
[2023-10-03] MEDS: VANCOMYCIN 1,500 MG in SODIUM CHLORIDE 0.9% 500 ML 500 ML IVPB SCH (14:13)
--- NOTE | 2023-10-03 14:28 | P.PN ---
Subjective Progress Note Date: 10/03/23 Patient is a 83-year-old female was transferred here for possibility of urinary tract infection. I am unable to get any kind of history from the patient although upon palpation of the abdomen patient has some mid abdominal tenderness patient does have worsening of her mental status as per the ECF staff. She is oriented x 3 as per the nursing documentation. Patient is nonverbal I am unable to get any kind of the history from the patient patient is alert and follows the commands. Patient has abnormal very urine with the squamous epithelial cells no fever does have leukocytosis which is not clearly explained the patient also is found to have elevated troponin of 1.820 and patient was started on IV heparin, this troponin is followed by 2 other troponins of 2.010 and 2.4 because of which cardiology evaluate the patient patient was started on IV heparin. Patient baseline has dementia and patient has a guardian. 10/02/2023 Patient is eval today in follow-up, she is more awake and alert and answering simple questions. She has a urinary tract infection with cultures showing e.coli and enterococcus because of this her antibiotics have been changed to IV unasyn. White blood cell count today 16.3. Patient echo shows EF of 20-25% with septal dyskinesis with LV thrombus. The IV heparin gtt has been discontinued today with no plans for anticoagulation. 10/03/2023 Patient is evaluated today in follow up she is sitting up in bed. More talkative today. Sensitivities have come back on the enterococcus and there is multidrug resistance for this reason ID has been consulted for antibiotic recommendations. Family is coming in from out of town today. Review of systems: Unable to obtain due to her clinical condition PHYSICAL EXAMINATION: GENERAL: The patient is alert and unable to assess orientation, not in any acute distress. Well developed, well nourished. HEENT: Pupils are round and equally reacting to light. EOMI. No scleral icterus. No conjunctival pallor. Normocephalic, atraumatic. No pharyngeal erythema. No thyromegaly. CARDIOVASCULAR: S1 and S2 present. No murmurs, rubs, or gallops. PULMONARY: Chest is clear to auscultation, no wheezing or crackles. ABDOMEN: Soft, mid abdominal tenderness, nondistended, normoactive bowel sounds. No palpable organomegaly. MUSCULOSKELETAL: No joint swelling or deformity. EXTREMITIES: No cyanosis, clubbing, or pedal edema. NEUROLOGICAL: Unable to assess SKIN: No rashes. Assessment and plan -Altered mental status toxic encephalopathy, secondary to underlying infection -Urinary tract infection with sepsis with culture showing e.coli and enterococcus on IV unasyn -Non ST elevation [place] -LV thrombus heparin has been stopped and no plans for anticoagulation from cardiology perspective -Congestive heart failure ejection fraction, systolic dysfunction EF 20-25% and patient continues on oral lasix -Hypertension currently normotensive/low and losartan will be held -Hypokalemia potassium will be replaced and now normalized. -Type 2 diabetes mellitus -Advanced dementia probably vascular dementia CT of the head showing chronic microvascular ischemic changes along with moderate to severe atrophy of the brain DVT prophylaxis GI prophylaxis No Code Continue antibiotics pending final urine culture. ID consulted for further antibiotic recommendations. Hospice has been consulted. No aggressive measures per cardiology. Did discuss findings and plan of care with patients daughter merlyn over the phone and the plan for now is to continue antibiotics. Family is coming in late tomorrow from out of state to discuss hospice etc. Encourage oral intake. Clear liquids only patient did not tolerate other types of consistency during her speech therapy evaluation. If family does not want hospice patient will likely need a PEG tube as her oral intake has been poor for the last few months per family. The impression and plan of care has been dictated by Jackeline Goodrich, Nurse Practitioner as directed. Dr. Ann MD I have performed a history and physical examination and medical decision making of this patient, discussed the same with the dictator, and agree with the dictators assessment and plan as written, documented as a scribe. Based on total visit time, I have performed more than 50% of this visit. Objective - Vital Signs Vital signs: Vital Signs Temp 97.4 F L 10/03/23 13:00 Pulse 68 10/03/23 13:00 Resp 17 10/03/23 13:00 BP 108/64 10/03/23 13:00 Pulse Ox 99 10/03/23 13:00 FiO2 Intake & Output 10/02/23 10/03/23 10/03/23 18:59 06:59 18:59 Intake Total 278.363 650 Output Total 0 800 Balance 278.363 -150 Intake: Intake, IV Titration 78.363 650 Amount Ampicillin-Sulbactam 3 gm 200 In Sodium Chloride 0.9% 100 ml @ 200 mls/hr IVPB Q6HR [facility] Rx#:[id number] Heparin Sod,Pork in 0.45% 78.363 NaCl 25,000 unit In 0.45 % NaCl 1 250ml.bag @ 11. 023 UNITS/KG/HR 10 mls/hr IV .Q24H [facility] Rx#: [id number] Sodium Chloride 0.9% 1, 450 000 ml @ 75 mls/hr IV . [id number] [facility] Rx#:[id number] Oral 200 Output: Urine 0 800 Straight 400 Other: Voiding Method External Catheter External Catheter External Catheter - Labs CBC & Chem 7: 10/02/23 10:06 10/03/23 05:08 Labs: Abnormal Lab Results - Last 24 Hours (Table) 10/02/23 10/02/23 10/02/23 Range/Units 10:06 17:32 20:46 Sodium 148 H (135-145) mmol/L Potassium (3.5-5.5) mmol/L Anion Gap 19.30 H (4.00-12.00) mmol/L BUN 38.4 H (9.0-27.0) mg/dL BUN/Creatinine Ratio 48.00 H (12.00-20.00) Ratio Glucose 198 H (70-110) mg/dL POC Glucose (mg/dL) 386 H 216 H (70-110) mg/dL 10/03/23 10/03/23 10/03/23 Range/Units 05:08 07:03 11:59 Sodium 149 H (135-145) mmol/L Potassium 2.8 L (3.5-5.5) mmol/L Anion Gap 13.50 H (4.00-12.00) mmol/L BUN 42.0 H (9.0-27.0) mg/dL BUN/Creatinine Ratio 60.00 H (12.00-20.00) Ratio Glucose 142 H (70-110) mg/dL POC Glucose (mg/dL) 131 H 266 H (70-110) mg/dL Microbiology - Last 24 Hours (Table) 09/30/23 21:35 Urine Culture - Preliminary Urine,Catheterized Enterococcus faecium Gram Neg Bacilli 09/30/23 16:28 Blood Culture - Preliminary Blood 09/30/23 16:43 Blood Culture - Preliminary Blood Assessment and Plan Time with Patient: Less than 30
--- NOTE | 2023-10-03 16:36 | P.CONS ---
History of Present Illness - Reason for Consult Consult date: 10/03/23 Drug-resistant UTI Requesting physician: Jackeline Goodrich - Chief Complaint Weakness and mental status changes x few days - History of Present Illness This is a telehealth visit Patient is a 83-year-old female with a past medical history significant for dementia diabetes mellitus hypertension hyperlipidemia reflux heart failure with patient has been brought into the hospital 3 days ago from the local residential concerning for altered mentation also noticed to have increased weakness did have decreased appetite and apparently previous similar symptom has been associated with an episode of UTI patient on presentation to the hospital was afebrile and no fever have been recorded subsequently patient was not tachycardic hypotensive or hypoxic patient did have a white count of 10.9 is up to 16.3 today creatinine 0.7 liver isms are normal patient did have a positive UA with moderate leukocyte Estrace 122 WBC urine culture now showing Enterococcus faecium and gram-negative bacilli patient has been on ceftriaxone infectious disease was consulted today for further management of antibiotic therapy patient did have a chest x-ray that was negative for acute cardiopulmonary disease process most information has been obtained from review the chart talking nursing staff the patient herself though awake and alert but not a very good historian because of underlying dementia and no family at the bedside Review of Systems Positive points has been mentioned in HPI complete review could not be obtained because of his underlying mental status Past Medical History Past Medical History: Heart Failure, CVA/TIA, Dementia, Diabetes Mellitus, GERD/Reflux, Hyperlipidemia, Hypertension, Memory Impairment, Osteoarthritis (OA), Renal Disease, Vascular Disorder Additional Past Medical History / Comment(s): Metabolic encephalopathy, CKD Stg 3, DM type 2, PVS, Dysphagia, multiple UTI's, hypomagnesemia, dysuria, tineapedis, vitamin D deficiency, sarcopenia, cannot swallow pills, History of Any Multi-Drug Resistant Organisms: Unobtainable Past Surgical History: Unable to Obtain Past Psychological History: Anxiety, Depression Smoking Status: Unknown if ever smoked Past Alcohol Use History: Unable to Obtain Past Drug Use History: Unable to Obtain Medications and Allergies Home Medications Medication Instructions Recorded Confirmed Type Acetaminophen Tab [Tylenol] 650 mg PO DAILY 09/30/23 09/30/23 History Acetaminophen Tab [Tylenol] 650 mg PO Q4H PRN 09/30/23 09/30/23 History Aspirin 81 mg PO DAILY 09/30/23 09/30/23 History Atorvastatin [Lipitor] 20 mg PO HS 09/30/23 09/30/23 History Famotidine 20 mg PO DAILY 09/30/23 09/30/23 History Furosemide [Lasix] 20 mg PO DAILY 09/30/23 09/30/23 History Health Shake 1 dose PO W/LUNCH 09/30/23 09/30/23 History Ipratropium-Albuterol Nebulize 3 ml INHALATION RT-Q6H PRN 09/30/23 09/30/23 History [Duoneb 0.5 mg-3 mg/3 ml Soln] Loperamide [Imodium] 2 mg PO QID PRN 09/30/23 09/30/23 History Losartan [Cozaar] 50 mg PO DAILY 09/30/23 09/30/23 History Magnesium Oxide [Mag-Ox] 400 mg PO BID 09/30/23 09/30/23 History Menthol [Biofreeze] 1 applic TOPICAL Q4H PRN 09/30/23 09/30/23 History Nitrofurantoin Monohyd/M-Cryst 100 mg PO Q12HR 09/30/23 09/30/23 History [Macrobid] metFORMIN HCL [Glucophage] 500 mg PO BID 09/30/23 09/30/23 History Allergies Allergy/AdvReac Type Severity Reaction Status Date / Time No Known Allergies Allergy Verified 09/30/23 18:23 Physical Exam Vitals: Vital Signs Temp Pulse Resp BP Pulse Ox 10/03/23 13:00 97.4 F L 68 17 108/64 99 10/03/23 07:03 97.7 F 80 18 124/76 99 10/03/23 01:54 98.0 F 74 16 140/89 100 10/02/23 20:00 98.2 F 79 16 114/67 97 Intake and Output 10/03/23 10/03/23 10/03/23 06:59 14:59 22:59 Intake Total 650 10 Output Total 800 Balance -150 10 Intake: IV 10 Invasive Line 3 10 Intake, IV Titration 650 Amount Ampicillin-Sulbactam 3 gm 200 In Sodium Chloride 0.9% 100 ml @ 200 mls/hr IVPB Q6HR [facility] Rx#:[id number] Sodium Chloride 0.9% 1, 450 000 ml @ 75 mls/hr IV . [id number] [facility] Rx#:[id number] Output: Urine 800 Straight 400 Other: Voiding Method External Catheter Elderly female lying in bed in no distress Respiratory system unlabored breathing decreased breath sound the base Heart S1-S2 regular Abdominal soft,no tenderness Extremities no edema feet Skin no rashes, no masses palpable Patient is awake, slightly confused orientation could not determine Exam compleetd with help of MEDICAL TECHNICIANS Results CBC & Chem 7: 10/02/23 10:06 10/04/23 06:47 Labs: Abnormal Lab Results - Last 24 Hours (Table) 10/02/23 10/02/23 10/03/23 Range/Units 17:32 20:46 05:08 Sodium 149 H (135-145) mmol/L Potassium 2.8 L (3.5-5.5) mmol/L Anion Gap 13.50 H (4.00-12.00) mmol/L BUN 42.0 H (9.0-27.0) mg/dL BUN/Creatinine Ratio 60.00 H (12.00-20.00) Ratio Glucose 142 H (70-110) mg/dL POC Glucose (mg/dL) 386 H 216 H (70-110) mg/dL 10/03/23 10/03/23 Range/Units 07:03 11:59 Sodium (135-145) mmol/L Potassium (3.5-5.5) mmol/L Anion Gap (4.00-12.00) mmol/L BUN (9.0-27.0) mg/dL BUN/Creatinine Ratio (12.00-20.00) Ratio Glucose (70-110) mg/dL POC Glucose (mg/dL) 131 H 266 H (70-110) mg/dL Microbiology - Last 24 Hours (Table) 09/30/23 21:35 Urine Culture - Preliminary Urine,Catheterized Enterococcus faecium Gram Neg Bacilli 09/30/23 16:28 Blood Culture - Preliminary Blood 09/30/23 16:43 Blood Culture - Preliminary Blood Assessment and Plan (1) UTI (urinary tract infection) Status: Acute Code(s): N39.0 - URINARY TRACT INFECTION, SITE NOT SPECIFIED SNOMED Code(s): 23027086 Plan: 1patient presented to hospital with mental status changes decreased appetite did have a positive UA concerning for symptomatic urinary tract infection with a urine culture growing drug-resistant Enterococcus faecium that is sensitive vancomycin resistant to ampicillin as well as gram-negative bacilli ID on the gram-negative isolate is currently pending. 2we will discontinue Unasyn. 3. The patient vancomycin pharmacy to dose and Rocephin while waiting for the ID sensitivity on the gram-negative pathogen. 4check an ultrasound of the kidneys area to make sure no evidence of any obstructive uropathy. We will follow on clinical condition and cultures to further adjust medication if needed Thank you for this consultation we will follow the patient along with you Dictation was produced using [employer] dictation software. please excuse any grammatical, word or spelling errors. Time with Patient: Greater than 30
[2023-10-03 17:08] LABS: Glucose,Whole Blood 358 mg/dL (70-110)
[2023-10-03 19:56] VITALS: RESP 16
[2023-10-03 20:19] LABS: Glucose,Whole Blood 387 mg/dL (70-110)
[2023-10-04] MEDS: POTASSIUM CHLORIDE 10 MEQ in WATER FOR INJECTION 1 100ML.BAG IVPB SCH (01:19)
[2023-10-04 07:32] LABS: Glucose,Whole Blood 90 mg/dL (70-110)
[2023-10-04 10:52] LABS: BUN/Creat Ratio 51.29 Ratio (12.00-20.00); Blood Urea Nitrogen 35.9 mg/dL (9.0-27.0); Calcium 9.2 mg/dL (8.7-10.3); Carbon Dioxide 20.6 mmol/L (21.6-31.8); Chloride 106 mmol/L (96-109); Glucose 103 mg/dL (70-110); Potassium 4.4 mmol/L (3.5-5.5); Sodium 140 mmol/L (135-145)
[2023-10-04 11:58] LABS: Glucose,Whole Blood 103 mg/dL (70-110)
--- NOTE | 2023-10-04 13:40 | US ---
EXAMINATION TYPE: US kidneys/renal and bladder DATE OF EXAM: 10/04/2023 COMPARISON: NONE CLINICAL INDICATION: Female, 83 years old with history of uti and bacteremia; UTI and bacteremia. EXAM MEASUREMENTS: Right Kidney: 9.0 x 4.2 x 4.7 cm Left Kidney: 9.6 x 5.0 x 5.3 cm Exam is very limited due to patient body habitus and gas Right Kidney: Limited. No abnormalities seen. Left Kidney: Limited. No abnormalities seen. Bladder: *Hyperechoic focus with posterior shadowing seen within the bladder: 1.8 x 1.5 x 0.4 cm. Bilateral Jets seen: Only right jet seen during exam. *Patient voided during exam. IMPRESSION: Very limited due to patient's body habitus but grossly no significant abnormality seen.
[2023-10-04 17:16] LABS: Glucose,Whole Blood 94 mg/dL (70-110)
[2023-10-04 20:49] LABS: Glucose,Whole Blood 111 mg/dL (70-110)
--- NOTE | 2023-10-04 23:05 | P.PN ---
Subjective Progress Note Date: 10/04/23 Patient is a 83-year-old female was transferred here for possibility of urinary tract infection. I am unable to get any kind of history from the patient although upon palpation of the abdomen patient has some mid abdominal tenderness patient does have worsening of her mental status as per the [facility] staff. She is oriented x 3 as per the nursing documentation. Patient is nonverbal I am unable to get any kind of the history from the patient patient is alert and follows the commands. Patient has abnormal very urine with the squamous epithelial cells no fever does have leukocytosis which is not clearly explained the patient also is found to have elevated troponin of 1.820 and patient was started on IV heparin, this troponin is followed by 2 other troponins of 2.010 and 2.4 because of which cardiology evaluate the patient patient was started on IV heparin. Patient baseline has dementia and patient has a guardian. 10/02/2023 Patient is eval today in follow-up, she is more awake and alert and answering simple questions. She has a urinary tract infection with cultures showing e.coli and enterococcus because of this her antibiotics have been changed to IV unasyn. White blood cell count today 16.3. Patient echo shows EF of 20-25% with septal dyskinesis with LV thrombus. The IV heparin gtt has been discontinued today with no plans for anticoagulation. 10/03/2023 Patient is evaluated today in follow up she is sitting up in bed. More talkative today. Sensitivities have come back on the enterococcus and there is multidrug resistance for this reason ID has been consulted for antibiotic recommendations. Family is coming in from out of town today. 10/04/2023 Patient is more lethargic today than yesterday not talking. She is awake alert and spontaneous eye opening. ID was consulted for findings in the urine culture has been started on IV ceftriaxone and IV vancomycin. Patient continues with poor oral intake. Family has come in from out of town and requesting informational visit with hospice. Review of systems: Unable to obtain due to her clinical condition PHYSICAL EXAMINATION: GENERAL: The patient is alert and unable to assess orientation, not in any acute distress. Well developed, well nourished. HEENT: Pupils are round and equally reacting to light. EOMI. No scleral icterus. No conjunctival pallor. Normocephalic, atraumatic. No pharyngeal erythema. No thyromegaly. CARDIOVASCULAR: S1 and S2 present. No murmurs, rubs, or gallops. PULMONARY: Chest is clear to auscultation, no wheezing or crackles. ABDOMEN: Soft, mid abdominal tenderness, nondistended, normoactive bowel sounds. No palpable organomegaly. MUSCULOSKELETAL: No joint swelling or deformity. EXTREMITIES: No cyanosis, clubbing, or pedal edema. NEUROLOGICAL: Unable to assess SKIN: No rashes. Assessment and plan -Altered mental status toxic encephalopathy, secondary to underlying infection -Urinary tract infection with sepsis with culture showing e.coli and enterococcus on IV unasyn -Non ST elevation [place] -LV thrombus heparin has been stopped and no plans for anticoagulation from cardiology perspective -Congestive heart failure ejection fraction, systolic dysfunction EF 20-25% and patient continues on oral lasix -Hypertension currently normotensive/low and losartan will be held -Hypokalemia potassium will be replaced and now normalized. -Type 2 diabetes mellitus -Advanced dementia probably vascular dementia CT of the head showing chronic microvascular ischemic changes along with moderate to severe atrophy of the brain DVT prophylaxis GI prophylaxis No Code Continue antibiotics pending final urine culture. ID consulted for further antibiotic recommendations. Hospice has been consulted. No aggressive measures per cardiology. Did discuss findings and plan of care with patients daughter merlyn over the phone and the plan for now is to continue antibiotics. Encourage oral intake. Clear liquids only patient did not tolerate other types of consistency during her speech therapy evaluation. If family does not want hospice patient will likely need a PEG tube as her oral intake has been poor for the last few months per family. Patients family will be meeting with hospice for informational session. The impression and plan of care has been dictated by Jackeline Goodrich Nurse Practitioner as directed. Dr. Ann MD I have performed a history and physical examination and medical decision making of this patient, discussed the same with the dictator, and agree with the dictators assessment and plan as written, documented as a scribe. Based on total visit time, I have performed more than 50% of this visit. Objective - Vital Signs Vital signs: Vital Signs Temp 99.4 F 10/04/23 11:45 Pulse 94 10/04/23 11:45 Resp 16 10/04/23 11:45 BP 127/72 10/04/23 11:45 Pulse Ox 96 10/04/23 11:45 FiO2 Intake & Output 10/03/23 10/04/2324 18:59 06:59 18:59 Intake Total 10 1200 Balance 10 1200 Intake: IV 10 Invasive Line 3 10 Intake, IV Titration 700 Amount Potassium Chloride 10 meq 200 In Water For Injection 1 100ml.bag @ 100 mls/hr IVPB Q1H [facility] Rx#: [id number] Vancomycin 1,500 mg In 500 Sodium Chloride 0.9% 500 ml 500 ml @ 167 mls/hr IVPB Q16H [facility] Rx#: [id number] Oral 500 Other: Voiding Method External Catheter Diaper Diaper Incontinent Incontinent # Voids 1 1 # Bowel Movements 1 - Labs CBC & Chem 7: 10/02/23 10:06 10/04/23 06:47 Labs: Abnormal Lab Results - Last 24 Hours (Table) 10/03/23 10/03/23 10/04/23 Range/Units 17:05 20:19 06:47 Carbon Dioxide 20.6 L (21.6-31.8) mmol/L Anion Gap 13.40 H (4.00-12.00) mmol/L BUN 35.9 H (9.0-27.0) mg/dL BUN/Creatinine Ratio 51.29 H (12.00-20.00) Ratio POC Glucose (mg/dL) 358 H 387 H (70-110) mg/dL Microbiology - Last 24 Hours (Table) 09/30/23 21:35 Urine Culture - Final Urine,Catheterized Enterococcus faecium Escherichia coli 09/30/23 16:28 Blood Culture - Preliminary Blood 09/30/23 16:43 Blood Culture - Preliminary Blood Assessment and Plan Time with Patient: Less than 30
[2023-10-05 07:13] LABS: Glucose,Whole Blood 90 mg/dL (70-110)
[2023-10-05 08:14] VITALS: BP 128/73; PULSE 69; TEMP 98.1
--- NOTE | 2023-10-05 10:35 | P.DS ---
Providers Date of admission: 09/30/23 19:02 Attending physician: May Ramirez MD Consults: 09/30/23 18:58 Consult Physician Routine Consulting Provider: [facility] Consult Reason/Comments: NSTEMI, chf Do you want consulting provider notified?: Yes 10/03/23 12:01 Consult Physician Routine Consulting Provider: Remy De Dios Consult Reason/Comments: drug resistant UTI Do you want consulting provider notified?: Yes Primary care physician: Nhung Guerra DO Hospital Course: Final Diagnosis -Altered mental status toxic encephalopathy, secondary to underlying infection -Urinary tract infection with sepsis with culture showing e.coli and enterococcus on IV unasyn -Non ST elevation [place] -LV thrombus heparin has been stopped and no plans for anticoagulation from cardiology perspective -Congestive heart failure ejection fraction, systolic dysfunction EF 20-25% and patient continues on oral lasix -Hypertension currently normotensive/low and losartan will be held -Hypokalemia potassium will be replaced and now normalized. -Type 2 diabetes mellitus -Advanced dementia probably vascular dementia CT of the head showing chronic microvascular ischemic changes along with moderate to severe atrophy of the brain Discharge Disposition [facility]. Hospital Course Patient is a 83-year-old female was transferred here for possibility of urinary tract infection. Patient has been at [facility] is a skilled nursing resident there. For the past few months family reports she has not been eating well and over the last week has not been talking and had a significant change in her mentation. Patient is nonverbal in the ER on the medical floor she was talking some but only answering simple questions and has not been eating or drinking. Patient has abnormal very urine with the squamous epithelial cells no fever does have leukocytosis which is not clearly explained the patient also is found to have elevated troponin of 1.820, this troponin is followed by 2 other troponins of 2.010 and 2.4 because of which cardiology evaluate the patient patient was started on IV heparin. Patient baseline has dementia and patient has a guardian. Cardiology evaluated the patient and recommending echocardiogram which reveals EF of 20-25% with septal dyskinesis with LV thrombus. The IV heparin gtt has been discontinued today with no plans for anticoagulation. Cardiology has recommended no aggressive measures for this patient and felt a poor candidate for anticoagulation. Her urine culture came back from drug resistent enterococcus and e coli and for that ID was consulted patient has been continued on IV ceftriaxone and IV vancomycin while inpatient. Patients family have come in from out of town including her daughter which is the legal guardian and they have met with hospice and decided on hospice for this patient. There is advanced dementia at baseline with a decline in her ability to eat and appetite over the past few months. Speech therapy saw the patient felt there was no signs of aspiration. She has been on thin liquids and dysphagia diet although extremely poor oral intake. Because of the congestive heart failure and advanced dementia we are recommending hospice for this patient and [facility] Please see medication reconciliation for a list of current medications. Thank you for allowing us to participate in the care of this patient. The impression and plan of care has been dictated by Jackeline Goodrich, Nurse Practitioner as directed. Dr. Ann MD I have performed a history and physical examination and medical decision making of this patient, discussed the same with the dictator, and agree with the dictators assessment and plan as written, documented as a scribe. Based on total visit time, I have performed more than 50% of this visit. Plan - Discharge Summary New Discharge Prescriptions: No Action Acetaminophen Tab [Tylenol] 650 mg PO Q4H PRN PRN Reason: Pain Magnesium Oxide [Mag-Ox] 400 mg PO BID Losartan [Cozaar] 50 mg PO DAILY Loperamide [Imodium] 2 mg PO QID PRN PRN Reason: Constipation Menthol [Biofreeze] 1 applic TOPICAL Q4H PRN PRN Reason: lower back pain Aspirin 81 mg PO DAILY Health Shake 1 dose PO W/LUNCH Acetaminophen Tab [Tylenol] 650 mg PO DAILY metFORMIN HCL [Glucophage] 500 mg PO BID Nitrofurantoin Monohyd/M-Cryst [Macrobid] 100 mg PO Q12HR Ipratropium-Albuterol Nebulize [Duoneb 0.5 mg-3 mg/3 ml Soln] 3 ml INHALATION RT-Q6H PRN PRN Reason: Shortness Of Breath Or Wheezing Furosemide [Lasix] 20 mg PO DAILY Famotidine 20 mg PO DAILY Atorvastatin [Lipitor] 20 mg PO HS Discharge Medication List Acetaminophen Tab [Tylenol] 650 mg PO DAILY 09/30/23 [History] Acetaminophen Tab [Tylenol] 650 mg PO Q4H PRN 09/30/23 [History] Aspirin 81 mg PO DAILY 09/30/23 [History] Atorvastatin [Lipitor] 20 mg PO HS 09/30/23 [History] Famotidine 20 mg PO DAILY 09/30/23 [History] Furosemide [Lasix] 20 mg PO DAILY 09/30/23 [History] Health Shake 1 dose PO W/LUNCH 09/30/23 [History] Ipratropium-Albuterol Nebulize [Duoneb 0.5 mg-3 mg/3 ml Soln] 3 ml INHALATION RT-Q6H PRN 09/30/23 [History] Loperamide [Imodium] 2 mg PO QID PRN 09/30/23 [History] Losartan [Cozaar] 50 mg PO DAILY 09/30/23 [History] Magnesium Oxide [Mag-Ox] 400 mg PO BID 09/30/23 [History] Menthol [Biofreeze] 1 applic TOPICAL Q4H PRN 09/30/23 [History] Nitrofurantoin Monohyd/M-Cryst [Macrobid] 100 mg PO Q12HR 09/30/23 [History] metFORMIN HCL [Glucophage] 500 mg PO BID 09/30/23 [History] Follow up Appointment(s)/Referral(s): Hospice,[facility] [REFERRING] - As Needed Nhung Guerra DO [Primary Care Provider] - 1-2 days Activity/Diet/Wound Care/Special Instructions: [facility]
[2023-10-06] MEDS ORDERED: VANCOMYCIN TROUGH DUE 1 EACH MISC MISCELLANE ONE (05:00)
--- NOTE | 2023-10-12 15:44 | P.PN ---
Subjective Progress Note Date: 10/04/23 Principal diagnosis: Reason for follow-up is urinary tract infection Patient is a 83-year-old female with a past medical history significant for dementia diabetes mellitus hypertension hyperlipidemia reflux heart failure with patient has been brought into the hospital from the local skilled nursing concerning for altered mentation also noticed to have increased weakness did have a positive UA concerning for symptomatic UTI urine culture did grow Enterococcus faecium and gram-negative prompting this consultation On today's evaluation that is 10/04/2023, Patient continues to be afebrile patient is breathing comfortably on room air and does not seem to be any distr ess patient seen bedside awake alert awake good historian no vomiting or diarrhea has been reported Patient did have a creatinine of 0.7 urine with E. coli Enterococcus faecium Objective - Vital Signs Vital signs: Vital Signs Temp 98.1 F 10/04/23 07:19 Pulse 95 10/04/23 07:19 Resp 16 10/04/23 07:19 BP 124/61 10/04/23 07:19 Pulse Ox 98 10/04/23 07:19 FiO2 Intake & Output 10/03/23 10/04/23 10/04/23 18:59 06:59 18:59 Intake Total 10 1200 Balance 10 1200 Intake: IV 10 Invasive Line 3 10 Intake, IV Titration 700 Amount Potassium Chloride 10 meq 200 In Water For Injection 1 100ml.bag @ 100 mls/hr IVPB Q1H [facility] Rx#: [id number] Vancomycin 1,500 mg In 500 Sodium Chloride 0.9% 500 ml 500 ml @ 167 mls/hr IVPB Q16H [facility] Rx#: [id number] Oral 500 Other: Voiding Method External Catheter Diaper Incontinent # Voids 1 1 # Bowel Movements 1 - Exam Elderly female lying in bed in no distress Respiratory system unlabored breathing decreased breath sound the base Heart S1-S2 regular Abdominal soft,no tenderness Extremities no edema feet Exam compleetd with help of [employer] - Labs CBC & Chem 7: 10/02/23 10:06 10/04/23 06:47 Labs: Abnormal Lab Results - Last 24 Hours (Table) 10/03/23 10/03/23 10/03/23 Range/Units 05:08 11:59 17:05 Sodium 149 H (135-145) mmol/L Potassium 2.8 L (3.5-5.5) mmol/L Anion Gap 13.50 H (4.00-12.00) mmol/L BUN 42.0 H (9.0-27.0) mg/dL BUN/Creatinine Ratio 60.00 H (12.00-20.00) Ratio Glucose 142 H (70-110) mg/dL POC Glucose (mg/dL) 266 H 358 H (70-110) mg/dL 10/03/23 Range/Units 20:19 Sodium (135-145) mmol/L Potassium (3.5-5.5) mmol/L Anion Gap (4.00-12.00) mmol/L BUN (9.0-27.0) mg/dL BUN/Creatinine Ratio (12.00-20.00) Ratio Glucose (70-110) mg/dL POC Glucose (mg/dL) 387 H (70-110) mg/dL Microbiology - Last 24 Hours (Table) 09/30/23 16:28 Blood Culture - Preliminary Blood 09/30/23 16:43 Blood Culture - Preliminary Blood 09/30/23 21:35 Urine Culture - Preliminary Urine,Catheterized Enterococcus faecium Gram Neg Bacilli Assessment and Plan (1) UTI (urinary tract infection) Status: Acute Code(s): N39.0 - URINARY TRACT INFECTION, SITE NOT SPECIFIED SNOMED Code(s): 27840900 Plan: This is telehealth visit 1patient presented to hospital with mental status changes decreased appetite did have a positive UA concerning for symptomatic bladder infection with a urine culture growing drug-resistant Enterococcus faecium that is sensitive vancomycin resistant to ampicillin as well as E. coli with some resistant pathogen is sensitive to ceftriaxone 2patient to continue with vancomycin pharmacy to dose and Rocephin and monitor clinical course closely Dictation was produced using [employer] dictation software. please excuse any grammatical, word or spelling errors. Time with Patient: Less than 30
--- NOTE | 2023-10-12 15:45 | P.PN ---
Subjective Progress Note Date: 10/05/23 Principal diagnosis: Reason for follow-up is urinary tract infection Patient is a 83-year-old female with a past medical history significant for dementia diabetes mellitus hypertension hyperlipidemia reflux heart failure with patient has been brought into the hospital from the local longterm concerning for altered mentation also noticed to have increased weakness did have a positive UA concerning for symptomatic UTI urine culture did grow Enterococcus faecium and gram-negative prompting this consultation On today's evaluation that is 10/05/2023, Patient remains to be afebrile patient is breathing comfortably on room air, the patient is not in any distress slightly awake normal dietary changes reported by nursing staff. No new labs has been obtained today Objective - Vital Signs Vital signs: Vital Signs Temp 98.1 F 10/05/23 07:15 Pulse 69 10/05/23 07:15 Resp 16 10/05/23 01:32 BP 128/73 10/05/23 07:15 Pulse Ox 96 10/05/23 08:19 FiO2 Intake & Output 10/05/23 10/05/23 10/06/23 06:59 18:59 06:59 Intake Total 500 Output Total 200 1 Balance 300 -1 Intake: Intake, IV Titration 500 Amount Vancomycin 1,500 mg In 500 Sodium Chloride 0.9% 500 ml 500 ml @ 167 mls/hr IVPB Q16H [facility] Rx#: [id number] Oral 0 Output: Urine 200 Stool 1 Other: Voiding Method Diaper Diaper Incontinent Incontinent - Exam Elderly female lying in bed in no distress Respiratory system unlabored breathing decreased breath sound the base Heart S1-S2 regular Abdominal soft,no tenderness Extremities no edema feet Exam compleetd with help of [employer] - Labs CBC & Chem 7: 10/02/23 10:06 10/04/23 06:47 Assessment and Plan (1) UTI (urinary tract infection) Status: Acute Code(s): N39.0 - URINARY TRACT INFECTION, SITE NOT SPECIFIED SNOMED Code(s): 59148735 Plan: This is telehealth visit 1patient presented to hospital with mental status changes decreased appetite di d have a positive UA concerning for symptomatic bladder infection with a urine culture growing drug-resistant Enterococcus faecium that is sensitive vancomycin resistant to ampicillin as well as E. coli with some resistant pathogen is sensitive to ceftriaxone 2patient is covered with with vancomycin pharmacy to dose and Rocephin however family is leaning more towards hospice oriented care which may be appropriate in that case antibiotics can be safely discontinued Dictation was produced using [employer] dictation software. please excuse any grammatical, word or spelling errors. Time with Patient: Less than 30
== END 2023-10-05 12:06 | disposition hospice, inpatient (51) | DRG 871 ==
LOC: EC 15:53 → 3SCARD 19:02 → EEVIPCON 19:02 → 3SCARD 10-01 02:54 → 5NMEDONC 10-01 16:41
PROVIDERS: ADMIT Internal Medicine; ATTEND Internal Medicine
DX: A41.51 Sepsis due to Escherichia coli [E. coli] (principal); G92.9 Unspecified toxic encephalopathy; I21.4 Non-ST elevation (NSTEMI) myocardial infarction; F01.53 Vascular dementia, unspecified severity, with mood disturbance; I13.0 Hypertensive heart and chronic kidney disease with heart failure and stage 1 through stage 4 chronic kidney disease, or unspecified chronic kidney disease; F01.54 Vascular dementia, unspecified severity, with anxiety; N39.0 Urinary tract infection, site not specified; I50.20 Unspecified systolic (congestive) heart failure; Z16.24 Resistance to multiple antibiotics; A41.81 Sepsis due to Enterococcus; E11.22 Type 2 diabetes mellitus with diabetic chronic kidney disease; E11.649 Type 2 diabetes mellitus with hypoglycemia without coma; E78.5 Hyperlipidemia, unspecified; N18.30 Chronic kidney disease, stage 3 unspecified; E87.6 Hypokalemia; F32.A Depression, unspecified; I44.7 Left bundle-branch block, unspecified; Z66 Do not resuscitate; E83.42 Hypomagnesemia; Z79.899 Other long term (current) drug therapy; Z79.84 Long term (current) use of oral hypoglycemic drugs; Z86.73 Personal history of transient ischemic attack (TIA), and cerebral infarction without residual deficits; Z87.440 Personal history of urinary (tract) infections; Z59.6 Low income; Z79.82 Long term (current) use of aspirin
CPT/HCPCS: 36415; 70450; 71046; 76770; 80048; 80053; 80306; 80320; 81001; 82140; 83605; 83735; 83880; 84132; 84484; 85025; 85027; 85610; 85730; 87040; 87077; 87086; 87186; 87636; 93005; 93306; 94760; 96361; 96365; 96366; 96368; 96375; 96376; 99291